=== PATIENT | male | born 1935 | race Caucasian/White ===

== ENCOUNTER → 2019-11-15 13:45 | Outpatient (BNVA) | payer MEDICARE, MEDICAID, SELFPAY | PROVIDERS: PCP Internal Medicine; Visit Provider Urology | DX: Z76.89 Persons encountering health services in other specified circumstances (principal) | CPT/HCPCS: 99212 ==

== ENCOUNTER → 2019-12-13 11:24 | Outpatient (BNVA) | payer MEDICARE, MEDICAID, SELFPAY | PROVIDERS: PCP Nurse Practitioner Family; Referring Provider Nurse Practitioner Family; Visit Provider Urology | DX: Z76.89 Persons encountering health services in other specified circumstances (principal) | CPT/HCPCS: 99212 ==

== ENCOUNTER 2019-12-18 09:23 | Emergency (ER) | payer MEDICARE, MEDICAID, SELFPAY ==
--- NOTE | 2019-12-18 09:29 | ED_ITS ---
HPI - Extremity Problem General Chief complaint: Chest Pain Stated complaint: WOKE UP WITH CP 3 HOURS AGO Time Seen by Provider: 12/18/19 09:28 Source: patient and EMS Mode of arrival: EMS Limitations: altered mental status (dementia) History of Present Illness HPI Narrative: EMS notes chest pain upon waking but Renae states atraumatic L shoulder pain no other associated symptoms MD Complaint: extremity pain Onset (ago): hour(s) (3) Pain Consistency: now resolved Location: left and upper extremity Quality: aching Radiation: none Relieving factors: nothing Exacerbating factors: range of motion Associated symptoms: denies other symptoms Related Data Home Medications Medication Instructions Recorded Confirmed apixaban 5 mg tablet 5 mg PO BID 11/10/19 12/13/19 atorvastatin 80 mg tablet 80 mg PO DAILY 11/10/19 12/13/19 blood sugar diagnostic #10 ea 11/10/19 12/13/19 blood-glucose meter #1 ea 11/10/19 12/13/19 carvedilol 6.25 mg tablet 6.25 mg PO BID 11/10/19 12/13/19 cefuroxime axetil 500 mg tablet 500 mg PO Q12H 11/10/19 12/13/19 cephalexin 500 mg capsule 500 mg PO Q6H 11/10/19 12/13/19 enoxaparin 80 mg/0.8 mL 70 mg SUBCUT Q12H 11/10/19 12/13/19 subcutaneous syringe glimepiride 1 mg tablet 1 mg PO DAILY 11/10/19 12/13/19 insulin glargine 100 unit/mL (3 30 unit SUBCUT BEDTIME 11/10/19 12/13/19 mL) subcutaneous pen lactulose 10 gram/15 mL oral 3 PO PRN 11/10/19 12/13/19 solution lancets #100 ea 11/10/19 12/13/19 levofloxacin 500 mg tablet 500 mg PO DAILY 11/10/19 12/13/19 levofloxacin 750 mg tablet 750 mg PO DAILY 11/10/19 12/13/19 lorazepam 0.5 mg tablet 0.5 mg PO Q6H PRN 11/10/19 12/13/19 memantine 5 mg tablet 5 mg PO BID 11/10/19 12/13/19 metformin 500 mg tablet 500 mg PO DAILY 11/10/19 12/13/19 metformin 850 mg tablet 850 mg PO DAILY 11/10/19 12/13/19 morphine concentrate 100 mg/5 mL 5 mg PO Q3H PRN 11/10/19 12/13/19 (20 mg/mL) oral solution omeprazole 20 mg capsule,delayed 20 mg PO QAM 11/10/19 12/13/19 release paroxetine HCl 20 mg tablet 20 mg PO QAM 11/10/19 12/13/19 polyethylene glycol 3350 17 17 g PO Q12H 11/10/19 12/13/19 gram/dose oral powder quetiapine 50 mg tablet 50 mg PO BEDTIME 11/10/19 12/13/19 sulfamethoxazole 800 1 tab PO BID 11/10/19 12/13/19 mg-trimethoprim 160 mg tablet tamsulosin 0.4 mg capsule 0.4 mg PO DAILY 11/10/19 12/13/19 temazepam 30 mg capsule 30 mg PO BEDTIME PRN 11/10/19 12/13/19 fluconazole 50 mg tablet 50 mg PO DAILY 11/15/19 12/13/19 Previous Rx's Medication Instructions Recorded insulin aspart U-100 100 unit/mL 2 unit SUBCUT TID 30 Days #1.8 ml 12/13/19 (3 mL) subcutaneous pen Allergies Allergy/AdvReac Type Severity Reaction Status Date / Time ibuprofen [IBUPROFEN] Allergy Unknown HIVES Verified 11/17/19 09:25 Review of Systems Review of Systems: ROS unable to be obtained due to dementia [facility] Past Medical History Medical History (Updated 12/18/19 @ 12:10 by Halie Bolton DO) Bladder cancer CAD (coronary artery disease) Dementia Diabetes Dysphagia Neurogenic bladder NSTEMI (non-ST elevated myocardial infarction) Pulmonary embolism Surgical History (Updated 11/17/19 @ 09:27 by YUVAL Coyle, DEL) Suprapubic catheter Family History Family History (Updated 11/17/19 @ 09:29 by YUVAL Coyle, DEL) Father Unknown family medical history Mother Unknown family medical history Social History Social History (Updated 12/18/19 @ 10:16 by Halie Bolton DO) Alcohol intake: never Smoking Status: Former smoker Smoked in Last 30 Days: No Use of substances other than those prescribed or required for medical reasons: No Advance Directives: No Advance Directives Information Provided: No Physical Exam Vital Signs: Vital Signs: Last Vital Signs Temp 97.9 F 12/18/19 10:27 Pulse 80 12/18/19 10:27 Resp 16 12/18/19 10:27 BP 114/65 12/18/19 10:27 Pulse Ox 97 12/18/19 10:27 Body Mass Index 21.2 Appearance: Alert. Oriented X2. No acute distress. Eyes: Pupils equal, round and reactive to light. ENT: Pharynx normal. Neck: Normal inspection. Neck supple. CVS: Normal heart rate and rhythm. Pulses normal. Respiratory: No respiratory distress. Breath sounds normal. Abdomen: Soft and nontender. Skin: Skin warm and dry. Normal skin color. Normal skin turgor. Extremities: No lower extremity edema. No calf ttp L shoulder ttp, distal NV intact pain with ROM Neuro: Oriented X 2. No motor deficit. No sensory deficit. Course Course Course Narrative: workup negative, chronically elevated WBC count at this time, stable for DC MDM - Extremity (Nontraumatic) MDM Narrative Medical decision making narrative: 83 yo male with hx of DM, dementia, PE here with self reported L shoulder pain worse with palpation and ROM - EMS told CP upon waking 3 hours ago at this time will need labs, EKG, troponin x 2, doubt PE on apixaban - shoulder xray ordered as well. dispo per results and findings. Lab Data Result diagrams: 12/18/19 10:56 12/18/19 10:56 Labs: Lab Results 12/18/19 12/18/19 12/18/19 Range/Units 10:56 10:56 10:56 WBC 14.2 H (4.8-10.8) X10*3/uL RBC 4.49 L (4.60-5.80) X10*6/uL Hgb 14.1 (14.0-18.0) g/dl Hct 41.1 L (42-52) % MCV 91.5 (80-98) fL MCH 31.4 (27.0-33.0) pg MCHC 34.3 (31.0-36.0) g/dl RDW 12.7 (11.0-16.0) % Plt Count 307 (160-400) X10*3/uL MPV 8.5 L (9.4-12.4) fL Immature Gran % (Auto) 0.4 (0.0-0.4) % Neut % (Auto) 74.3 H (45-73) % Lymph % (Auto) 17.2 L (20-40) % Luna % (Auto) 6.5 (2-11) % Eos % (Auto) 1.1 (0-4) % Baso % (Auto) 0.5 (0-2) % Lymph # (Auto) 2.4 (1.2-4.9) X10*3/uL Luna # (Auto) 0.9 (0.1-1.2) X10*3/uL Eos # (Auto) 0.2 (0.0-0.4) X10*3/uL Baso # (Auto) 0.1 (0.0-0.2) X10*3/uL Abs Immat Gran (auto) 0.06 H (0.00-0.03) X10*3/uL Absolute Neuts (auto) 10.5 H (2.0-8.3) X10*3/uL Absolute Nucleated RBC 0.000 (0.0-0.012) X10*3/uL Nucleated RBC % (auto) 0.0 (0.0-0.2) /100WBC Hold Blue Top SEE NOTE Sodium 134 L (135-145) mmol/L Potassium 4.3 (3.3-5.1) mmol/l Chloride 98 (96-108) mmol/L Carbon Dioxide 28 (22-29) mmol/L Anion Gap 12 (12-20) BUN 9 (9-16) mg/dL Creatinine 0.84 (0.5-1.4) mg/dL Estim Creat Clear Calc 67.3 Estimated GFR > 60 Random Glucose 124 H (60-115) mg/dL Calcium 8.8 (8.4-10.2) mg/dL Magnesium (1.6-2.6) mg/dL Total Bilirubin 0.5 (0.0-1.0) mg/dL Direct Bilirubin 0.2 (0.0-0.5) mg/dL AST 11 (5-37) U/L ALT 8 (0-40) U/L Alkaline Phosphatase 154 H (39-117) U/L Troponin I High Sens (<3.5-35.0) ng/L Total Protein 7.6 (6.5-8.0) g/dL Albumin 3.9 (3.5-5.0) g/dL Lipase 28 (8-78) U/L 12/18/19 12/18/19 Range/Units 10:56 10:56 WBC (4.8-10.8) X10*3/uL RBC (4.60-5.80) X10*6/uL Hgb (14.0-18.0) g/dl Hct (42-52) % MCV (80-98) fL MCH (27.0-33.0) pg MCHC (31.0-36.0) g/dl RDW (11.0-16.0) % Plt Count (160-400) X10*3/uL MPV (9.4-12.4) fL Immature Gran % (Auto) (0.0-0.4) % Neut % (Auto) (45-73) % Lymph % (Auto) (20-40) % Luna % (Auto) (2-11) % Eos % (Auto) (0-4) % Baso % (Auto) (0-2) % Lymph # (Auto) (1.2-4.9) X10*3/uL Luna # (Auto) (0.1-1.2) X10*3/uL Eos # (Auto) (0.0-0.4) X10*3/uL Baso # (Auto) (0.0-0.2) X10*3/uL Abs Immat Gran (auto) (0.00-0.03) X10*3/uL Absolute Neuts (auto) (2.0-8.3) X10*3/uL Absolute Nucleated RBC (0.0-0.012) X10*3/uL Nucleated RBC % (auto) (0.0-0.2) /100WBC Hold Blue Top Sodium (135-145) mmol/L Potassium (3.3-5.1) mmol/l Chloride (96-108) mmol/L Carbon Dioxide (22-29) mmol/L Anion Gap (12-20) BUN (9-16) mg/dL Creatinine (0.5-1.4) mg/dL Estim Creat Clear Calc Estimated GFR Random Glucose (60-115) mg/dL Calcium (8.4-10.2) mg/dL Magnesium 2.0 (1.6-2.6) mg/dL Total Bilirubin (0.0-1.0) mg/dL Direct Bilirubin (0.0-0.5) mg/dL AST (5-37) U/L ALT (0-40) U/L Alkaline Phosphatase (39-117) U/L Troponin I High Sens < 3.5 (<3.5-35.0) ng/L Total Protein (6.5-8.0) g/dL Albumin (3.5-5.0) g/dL Lipase (8-78) U/L ECG Data Attestation EKG: I personally reviewed and interpreted this ECG as follows: ECG interpretation date: 12/18/19 ECG interpretation time: 10:17 Interpretation: Rate: 81 Rhythm: NSR [place]: left Normal P waves. Normal EM. Normal QRS complex. ST T wave : nonspecific qTC: normal prior studies: no acute ischemia, artifact present The study has been interpreted contemporaneously by me. . Discharge Plan Discharge Clinical Impression: Acute shoulder pain Qualifiers: Laterality: left Qualified Code(s): M25.512 - Pain in left shoulder Patient Disposition: Home, Self-Care Instructions: Arthralgia (ED) Additional Instructions: return to ED for any worsening symptoms or concerns Prescriptions: No Action insulin aspart U-100 [Novolog Flexpen U-100 Insulin] 100 unit/mL (3 mL) insulin pen 2 unit subcut TID 30 Days Qty: 1.8 RF: 0 lactulose 10 gram/15 mL solution 3 PO PRNRF: 0 (DME) OneTouch Ultra Blue Test Strip Strip See Rx Instructions strip .ROUTE .MEDSUPPLY Qty: 10 RF: 0 levofloxacin 500 mg tablet 500 mg PO DAILY RF: 0 cefuroxime axetil 500 mg tablet 500 mg PO Q12H RF: 0 metformin 850 mg tablet 850 mg PO DAILY RF: 0 Eliquis 5 mg tablet 5 mg PO BID RF: 0 quetiapine 50 mg tablet 50 mg PO BEDTIME RF: 0 paroxetine HCl 20 mg tablet 20 mg PO QAM RF: 0 (DME) lancets Misc See Rx Instructions ea .ROUTE .MEDSUPPLY Qty: 100 RF: 0 carvedilol 6.25 mg tablet 6.25 mg PO BID RF: 0 sulfamethoxazole-trimethoprim 800-160 mg tablet 1 tab PO BID RF: 0 memantine 5 mg tablet 5 mg PO BID RF: 0 glimepiride 1 mg tablet 1 mg PO DAILY RF: 0 metformin 500 mg tablet 500 mg PO DAILY RF: 0 enoxaparin 80 mg/0.8 mL syringe 70 mg subcut Q12H RF: 0 polyethylene glycol 3350 17 gram/dose powder 17 g PO Q12H RF: 0 (DME) blood-glucose meter Misc See Rx Instructions ea .ROUTE BID Qty: 1 RF: 0 Lantus Solostar U-100 Insulin 100 unit/mL (3 mL) insulin pen 30 unit subcut BEDTIME RF: 0 temazepam 30 mg capsule 30 mg PO BEDTIME PRNRF: 0 tamsulosin 0.4 mg capsule 0.4 mg PO DAILY RF: 0 lorazepam 0.5 mg tablet 0.5 mg PO Q6H PRN (Reason: dyspnea) RF: 0 morphine concentrate 100 mg/5 mL (20 mg/mL) solution 5 mg PO Q3H PRN (Reason: pain) RF: 0 atorvastatin 80 mg tablet 80 mg PO DAILY RF: 0 levofloxacin 750 mg tablet 750 mg PO DAILY RF: 0 omeprazole 20 mg capsule,delayed release(DR/EC) 20 mg PO QAM RF: 0 cephalexin 500 mg capsule 500 mg PO Q6H RF: 0 fluconazole 50 mg tablet 50 mg PO DAILY RF: 0 Referrals: Physician,Unknown [Primary Care Provider] - 2 days (if not better)
--- NOTE | 2019-12-18 09:29 | XR_ITS ---
EXAMINATION: LEFT SHOULDER X-RAY CLINICAL INFORMATION: Pain COMPARISON: None TECHNIQUE: 3 views of the left shoulder FINDINGS: Bone alignment is normal. No fracture or dislocation is seen. The glenohumeral joint is normal. There is arthritis at the acromioclavicular joint. Soft tissues are unremarkable. XR/XR shoulder LT min 2V IMPRESSION: Arthritis at the acromioclavicular joint. EXAMINATION: Chest x-ray CLINICAL INFORMATION: Pain COMPARISON: Previous chest x-ray April 2016 TECHNIQUE: AP portable chest FINDINGS: The cardiac and mediastinal contours are stable. The lungs are clear. There is no pleural effusion or pneumothorax. There are degenerative changes of the spine. There is an old right proximal humerus fracture. IMPRESSION: No evidence for acute disease in the chest.
--- NOTE | 2019-12-18 09:29 | ECG_ITS ---
Test Reason : WEAKNESS Blood Pressure : / mmHG Vent. Rate : 081 BPM Atrial Rate : 081 BPM P-R Int : 180 ms QRS Dur : 072 ms QT Int : 372 ms P-R-T Axes : 056 002 053 degrees QTc Int : 432 ms Poor data quality, interpretation may be adversely affected Normal sinus rhythm Low voltage QRS Nonspecific T wave abnormality Lateral leads Abnormal ECG When compared with ECG of 28-OCT-2019 14:34, T wave amplitude has decreased in Lateral leads Referred By: Halie Bolton Electronically Signed By:WALTER PALMER MD
--- NOTE | 2019-12-18 09:30 | XR_ITS ---
EXAMINATION: LEFT SHOULDER X-RAY CLINICAL INFORMATION: Pain COMPARISON: None TECHNIQUE: 3 views of the left shoulder FINDINGS: Bone alignment is normal. No fracture or dislocation is seen. The glenohumeral joint is normal. There is arthritis at the acromioclavicular joint. Soft tissues are unremarkable. XR/XR chest 1V IMPRESSION: Arthritis at the acromioclavicular joint. EXAMINATION: Chest x-ray CLINICAL INFORMATION: Pain COMPARISON: Previous chest x-ray April 2016 TECHNIQUE: AP portable chest FINDINGS: The cardiac and mediastinal contours are stable. The lungs are clear. There is no pleural effusion or pneumothorax. There are degenerative changes of the spine. There is an old right proximal humerus fracture. IMPRESSION: No evidence for acute disease in the chest.
--- NOTE | 2019-12-18 10:03 | PC.NURSE ---
ekg completed, seen by provider, off to xray via stretcher
[2019-12-18 10:27] VITALS: BP 114/65; BP 117/64; PULSE 68; PULSE 80; RESP 16; TEMP 36.6; O2SAT 97; O2SAT 98; BMI 21.2
--- NOTE | 2019-12-18 10:47 | PC.NURSE ---
unable to draw blood labs, pct at bedside to attempt labs.
[2019-12-18 11:03] LABS: MANUAL DIFF FLAG NO
[2019-12-18 11:05] LABS: Basophils Absolute Auto 0.1 X10*3/uL (0.0-0.2); Basophils Percent Auto 0.5 % (0-2); Eosinophils Absolute Auto 0.2 X10*3/uL (0.0-0.4); Eosinophils Percent Auto 1.1 % (0-4); Hematocrit 41.1 % (42-52); Hemoglobin 14.1 g/dl (14.0-18.0); Imm Gran Abs Auto 0.06 X10*3/uL (0.00-0.03); Imm Gran Pct Auto 0.4 % (0.0-0.4); Lymphocytes Absolute Auto 2.4 X10*3/uL (1.2-4.9); Lymphocytes Percent Auto 17.2 % (20-40); Mean Corpuscular HGB Conc 34.3 g/dl (31.0-36.0); Mean Corpuscular Hemoglobin 31.4 pg (27.0-33.0); Mean Corpuscular Volume 91.5 fL (80-98); Mean Platelet Volume 8.5 fL (9.4-12.4); Monocytes Absolute Auto 0.9 X10*3/uL (0.1-1.2); Monocytes Percent Auto 6.5 % (2-11); Neutrophils Absolute Auto 10.5 X10*3/uL (2.0-8.3); Neutrophils Percent Auto 74.3 % (45-73); Platelet Count 307 X10*3/uL (160-400); Red Blood Count 4.49 X10*6/uL (4.60-5.80); Red Cell Distribution Width 12.7 % (11.0-16.0); White Blood Count 14.2 X10*3/uL (4.8-10.8)
[2019-12-18 11:33] LABS: Alanine Aminotransferase 8 U/L (0-40); Albumin Level 3.9 g/dL (3.5-5.0); Alkaline Phosphatase 154 U/L (39-117); Anion Gap 12 (12-20); Aspartate Amino Transferase 11 U/L (5-37); Bilirubin Direct 0.2 mg/dL (0.0-0.5); Bilirubin Total 0.5 mg/dL (0.0-1.0); Blood Urea Nitrogen 9 mg/dL (9-16); Calcium 8.8 mg/dL (8.4-10.2); Carbon Dioxide 28 mmol/L (22-29); Chloride 98 mmol/L (96-108); Creatinine Clr Calc Pharmacy 67.3; Estimated Glomerular Filt Rate > 60; Glucose Random 124 mg/dL (60-115); Lipase 28 U/L (8-78); Potassium 4.3 mmol/l (3.3-5.1); Sodium 134 mmol/L (135-145); Total Protein 7.6 g/dL (6.5-8.0)
[2019-12-18 11:36] LABS: Troponin-I High Sensitivity < 3.5 ng/L (<3.5-35.0)
--- NOTE | 2019-12-18 12:01 | PC.NURSE ---
pt in waiting room updated on plan of care.
== END 2019-12-18 13:42 | disposition home or self-care (01) ==
PROVIDERS: Emergency Provider Emergency Medicine
DX: R07.9 Chest pain, unspecified (principal); M25.512 Pain in left shoulder; Z79.899 Other long term (current) drug therapy; Z87.891 Personal history of nicotine dependence
CPT/HCPCS: 36415; 71045; 73030; 80048; 80076; 83690; 83735; 84484; 85025; 93005; 99283; 99284

== ENCOUNTER 2019-12-25 13:57 | Inpatient (IN) | payer MEDICARE, MEDICAID, SELFPAY ==
[2019-12-25 15:55] VITALS: BP 143/75; PULSE 102; RESP 14; TEMP 36.6; O2SAT 97
--- NOTE | 2019-12-25 16:45 | US_ITS ---
EXAMINATION: US SCROTUM CLINICAL INFORMATION: Testicular swelling. COMPARISON: None TECHNIQUE: A sonogram of the scrotum was performed assessing chandler-scale appearance and color Doppler flow. Spectral Doppler analysis of the arterial and venous flow were performed in the testes bilaterally. FINDINGS: RIGHT: Right testicle measures 3.5 x 2.1 x 2 cm, volume 8.1 mL. No focal testicular parenchymal lesions are visualized. Spectral Doppler analysis of the arterial and venous flow is normal in the right testis. Right epididymal head is normal in size. There is a 0.7 cm echogenic focus in the tail of the epididymis, that with surrounding hypoechogenicity. No right hydrocele or varicocele is seen. Right epididymal Doppler flow is increased. LEFT: Left testicle measures 3.5 x 2.1 x 2.8 cm, volume 10.9 mL. No focal testicular parenchymal lesions are visualized. Spectral Doppler analysis of the arterial and venous flow is increased in the left testis. Left epididymal head is increased in size and is heterogeneous the left scrotal soft tissues are quite thickened. There is a complex left hydrocele with internal debris measuring approximately 3.6 x 2.8 cm in transverse dimension. Left epididymal Doppler flow is increased. US/US scrotum IMPRESSION: Enlarged heterogeneous and hyperemic left epididymis and hyperemic left testicle concerning for epididymoorchitis. There is an associated complex left hydrocele that may represent a pyocele with internal debris. There is also mild hyperemia of the right epididymis, that may represent adjacent inflammation.. Nonspecific 0.7 cm echogenic focus in the tail of the epididymis with surrounding hypoechogenicity. Findings may represent an extratesticular dermoid or granuloma. Intact arterial and venous flow to both testes without evidence for torsion.
--- NOTE | 2019-12-25 16:52 | ED.MALEGU ---
HPI - Male Genitourinary General Chief complaint: Urogenital-Male Stated complaint: testicle pain Time Seen by Provider: 12/25/19 16:41 Source: patient and family Mode of arrival: ambulatory Limitations: other ( dementia) History of Present Illness HPI Narrative: patient with history of scrotal abscess status post I and D on 11/14 comes here for increased swelling of scrotum mostly on the left side for last 3 days some serous discharge. Patient blood sugar been stable no fever no chills no abdominal pain no nausea no vomiting MD Complaint: testicle pain and testicle swelling Radiation: right testicle and left testicle Related Data Home Medications Medication Instructions Recorded Confirmed apixaban 5 mg tablet 5 mg PO BID 11/10/19 12/26/19 atorvastatin 80 mg tablet 80 mg PO DAILY 11/10/19 12/26/19 blood sugar diagnostic #10 ea 11/10/19 12/26/19 blood-glucose meter #1 ea 11/10/19 12/13/19 carvedilol 6.25 mg tablet 6.25 mg PO BID 11/10/19 12/26/19 cefuroxime axetil 500 mg tablet 500 mg PO Q12H 11/10/19 12/26/19 cephalexin 500 mg capsule 500 mg PO Q6H 11/10/19 12/26/19 enoxaparin 80 mg/0.8 mL 70 mg SUBCUT Q12H 11/10/19 12/26/19 subcutaneous syringe glimepiride 1 mg tablet 1 mg PO DAILY 11/10/19 12/26/19 insulin glargine 100 unit/mL (3 30 unit SUBCUT BEDTIME 11/10/19 12/26/19 mL) subcutaneous pen lactulose 10 gram/15 mL oral 3 PO PRN 11/10/19 12/13/19 solution lancets #100 ea 11/10/19 12/13/19 levofloxacin 500 mg tablet 500 mg PO DAILY 11/10/19 12/26/19 levofloxacin 750 mg tablet 750 mg PO DAILY 11/10/19 12/26/19 lorazepam 0.5 mg tablet 0.5 mg PO Q6H PRN 11/10/19 12/26/19 memantine 5 mg tablet 5 mg PO BID 11/10/19 12/26/19 metformin 500 mg tablet 500 mg PO DAILY 11/10/19 12/26/19 metformin 850 mg tablet 850 mg PO DAILY 11/10/19 12/26/19 morphine concentrate 100 mg/5 mL 5 mg PO Q3H PRN 11/10/19 12/26/19 (20 mg/mL) oral solution omeprazole 20 mg capsule,delayed 20 mg PO QAM 11/10/19 12/26/19 release paroxetine HCl 20 mg tablet 20 mg PO QAM 11/10/19 12/13/19 polyethylene glycol 3350 17 17 g PO Q12H 11/10/19 12/26/19 gram/dose oral powder quetiapine 50 mg tablet 50 mg PO BEDTIME 11/10/19 12/26/19 sulfamethoxazole 800 1 tab PO BID 11/10/19 12/26/19 mg-trimethoprim 160 mg tablet tamsulosin 0.4 mg capsule 0.4 mg PO DAILY 11/10/19 12/26/19 temazepam 30 mg capsule 30 mg PO BEDTIME PRN 11/10/19 12/26/19 fluconazole 50 mg tablet 50 mg PO DAILY 11/15/19 12/26/19 Previous Rx's Medication Instructions Recorded insulin aspart U-100 100 unit/mL 2 unit SUBCUT TID 30 Days #1.8 ml 12/13/19 (3 mL) subcutaneous pen sulfamethoxazole 800 1 tab PO BID 14 Days #28 tab 12/23/19 mg-trimethoprim 160 mg tablet Allergies Allergy/AdvReac Type Severity Reaction Status Date / Time ibuprofen [IBUPROFEN] Allergy Unknown HIVES Verified 12/25/19 15:59 Review of Systems Review of Systems: REVIEW OF SYSTEMS: per patient's , Pertinent positives and negatives are stated above in the history. GEN: no fevers, chills, fatigue HEENT: no nasal congestion, sore throat, ear pain NEURO: no headache, dizziness, focal weakness PULM: no cough, shortness of breath CV: no chest pain, palpitations, LE edema ABD: no abdominal pain, nausea, vomiting, diarrhea : no dysuria, urgency, frequency SKIN: no rash ROS otherwise negative x 10 [facility] Past Medical History Medical History (Updated 12/26/19 @ 00:20 by Benito Patel MD) Bladder cancer CAD (coronary artery disease) Dementia Diabetes Dysphagia Neurogenic bladder NSTEMI (non-ST elevated myocardial infarction) Pulmonary embolism Surgical History Suprapubic catheter Family History Family History Father Unknown family medical history Mother Unknown family medical history Social History Social History Alcohol intake: never Smoking Status: Former smoker Advance Directives: No Advance Directives Information Provided: No Physical Exam Vital Signs: Vital Signs: Last Vital Signs Temp 97.9 F 12/25/19 18:00 Pulse 94 12/25/19 18:00 Resp 16 12/25/19 18:00 BP 134/71 12/25/19 18:00 Pulse Ox 95 12/25/19 18:00 Body Mass Index 0.0 Const: General: cooperative, healthy appearing, comfortable and no acute distress HENMT: Mouth: Normal oral and palatal mucosa present Eyes: Conjunctivae: conjunctivae normal Sclerae: sclerae normal Resp: Effort & Inspection: normal respiratory effort Auscultation: clear to auscultation bilaterally Cardio: Rate: regular rate Rhythm: regular rhythm Heart sounds: S1 normal heart sound present and S2 normal heart sound present GI: Inspection: Yes normal to inspection Palpation (GI): Soft to palpation, Firmness to palpation present (GI) and nontender Auscultation: normal bowel sounds : Male General Exam: Yes normal external exam Penis: normal penis Meatus: meatus normal Scrotum: testes descended bilaterally and scrotal swelling on the left and diffuse Testes: Enlarged testicle(s) present on the left, mass, testicular mass on the left and testicular swelling on the left Course Reevaluation(s) Reevaluation #1: patient with history of epididymo-orchitis came with increased pain and swelling left testicle for last 3 days ultrasound showed recurrence of left epididymo-orchitis with complex left hydrocele 3.6 x 2.8 cm. Patient with leukocytosis no fever normal lactic acid level. Will give him Zosyn. Case discussed with Dr. Whitfield urologist admit to medical service will see the patient tomorrow MDM - Male Genitourinary Differential Diagnosis Differential diagnosis: Likely epididymitis Medical Records Attestation: I reviewed the patient's medical records. Lab Data Attestation: I reviewed the patient's lab results. Result diagrams: 12/25/19 18:43 12/25/19 18:43 Labs: Lab Results 12/25/19 12/25/19 12/25/19 Range/Units 18:43 18:43 20:53 WBC 17.0 H (4.8-10.8) X10*3/uL RBC 4.01 L (4.60-5.80) X10*6/uL Hgb 12.6 L (14.0-18.0) g/dl Hct 37.1 L (42-52) % MCV 92.5 (80-98) fL MCH 31.4 (27.0-33.0) pg MCHC 34.0 (31.0-36.0) g/dl RDW 12.5 (11.0-16.0) % Plt Count 340 (160-400) X10*3/uL MPV 8.4 L (9.4-12.4) fL Immature Gran % (Auto) 0.5 H (0.0-0.4) % Neut % (Auto) 76.6 H (45-73) % Lymph % (Auto) 14.2 L (20-40) % [place] % (Auto) 6.5 (2-11) % Eos % (Auto) 1.8 (0-4) % Baso % (Auto) 0.4 (0-2) % Lymph # (Auto) 2.4 (1.2-4.9) X10*3/uL [place] # (Auto) 1.1 (0.1-1.2) X10*3/uL Eos # (Auto) 0.3 (0.0-0.4) X10*3/uL Baso # (Auto) 0.1 (0.0-0.2) X10*3/uL Abs Immat Gran (auto) 0.09 H (0.00-0.03) X10*3/uL Absolute Neuts (auto) 13.0 H (2.0-8.3) X10*3/uL Absolute Nucleated RBC 0.000 (0.0-0.012) X10*3/uL Nucleated RBC % (auto) 0.0 (0.0-0.2) /100WBC Sodium 130 L (135-145) mmol/L Potassium 4.3 (3.3-5.1) mmol/l Chloride 94 L (96-108) mmol/L Carbon Dioxide 27 (22-29) mmol/L Anion Gap 13 (12-20) BUN 11 (9-16) mg/dL Creatinine 1.00 (0.5-1.4) mg/dL Estim Creat Clear Calc TNP Estimated GFR > 60 Random Glucose 264 H D (60-115) mg/dL Lactic Acid 1.4 (0.5-2.0) mmol/L Calcium 8.6 (8.4-10.2) mg/dL COVID-19 (REGAN) (Negative) COVID-19 Clin Com 12/25/19 Range/Units 23:49 WBC (4.8-10.8) X10*3/uL RBC (4.60-5.80) X10*6/uL Hgb (14.0-18.0) g/dl Hct (42-52) % MCV (80-98) fL MCH (27.0-33.0) pg MCHC (31.0-36.0) g/dl RDW (11.0-16.0) % Plt Count (160-400) X10*3/uL MPV (9.4-12.4) fL Immature Gran % (Auto) (0.0-0.4) % Neut % (Auto) (45-73) % Lymph % (Auto) (20-40) % [place] % (Auto) (2-11) % Eos % (Auto) (0-4) % Baso % (Auto) (0-2) % Lymph # (Auto) (1.2-4.9) X10*3/uL [place] # (Auto) (0.1-1.2) X10*3/uL Eos # (Auto) (0.0-0.4) X10*3/uL Baso # (Auto) (0.0-0.2) X10*3/uL Abs Immat Gran (auto) (0.00-0.03) X10*3/uL Absolute Neuts (auto) (2.0-8.3) X10*3/uL Absolute Nucleated RBC (0.0-0.012) X10*3/uL Nucleated RBC % (auto) (0.0-0.2) /100WBC Sodium (135-145) mmol/L Potassium (3.3-5.1) mmol/l Chloride (96-108) mmol/L Carbon Dioxide (22-29) mmol/L Anion Gap (12-20) BUN (9-16) mg/dL Creatinine (0.5-1.4) mg/dL Estim Creat Clear Calc Estimated GFR Random Glucose (60-115) mg/dL Lactic Acid (0.5-2.0) mmol/L Calcium (8.4-10.2) mg/dL COVID-19 (REGAN) Negative (Negative) COVID-19 Clin Com See Note Imaging Data US - abdomen: Attestation: I personally reviewed and interpreted this imaging study as follows: Radiologist's impression: US/US scrotum IMPRESSION: Enlarged heterogeneous and hyperemic left epididymis and hyperemic left testicle concerning for epididymoorchitis. There is an associated complex left hydrocele that may represent a pyocele with internal debris. There is also mild hyperemia of the right epididymis, that may represent adjacent inflammation.. Nonspecific 0.7 cm echogenic focus in the tail of the epididymis with surrounding hypoechogenicity. Findings may represent an extratesticular dermoid or granuloma. Intact arterial and venous flow to both testes without evidence for torsion. Discharge Plan Discharge Clinical Impression: Acute epididymo-orchitis Patient Disposition: Admitted As Inpatient
--- NOTE | 2019-12-25 17:20 | PC.NURSE ---
Pt diffucult sstick- x attempt from this rn, u/s currently at bedside then second rn to attempt
[2019-12-25 18:00] VITALS: BP 134/71; PULSE 94; RESP 16; TEMP 36.6; O2SAT 95
--- NOTE | 2019-12-25 18:43 | PC.NURSE ---
Per dr. gleason ok to not give fluids/ iv access. phlebotomy called, multiple attempts by rns for labs/iv
[2019-12-25 18:50] LABS: MANUAL DIFF FLAG NO
[2019-12-25 18:53] LABS: Basophils Absolute Auto 0.1 X10*3/uL (0.0-0.2); Basophils Percent Auto 0.4 % (0-2); Eosinophils Absolute Auto 0.3 X10*3/uL (0.0-0.4); Eosinophils Percent Auto 1.8 % (0-4); Hematocrit 37.1 % (42-52); Hemoglobin 12.6 g/dl (14.0-18.0); Imm Gran Abs Auto 0.09 X10*3/uL (0.00-0.03); Imm Gran Pct Auto 0.5 % (0.0-0.4); Lymphocytes Absolute Auto 2.4 X10*3/uL (1.2-4.9); Lymphocytes Percent Auto 14.2 % (20-40); Mean Corpuscular Hemoglobin 31.4 pg (27.0-33.0); Mean Corpuscular Volume 92.5 fL (80-98); Mean Platelet Volume 8.4 fL (9.4-12.4); Monocytes Absolute Auto 1.1 X10*3/uL (0.1-1.2); Monocytes Percent Auto 6.5 % (2-11); Neutrophils Percent Auto 76.6 % (45-73); Platelet Count 340 X10*3/uL (160-400); Red Blood Count 4.01 X10*6/uL (4.60-5.80); Red Cell Distribution Width 12.5 % (11.0-16.0)
[2019-12-25 19:26] LABS: Anion Gap 13 (12-20); Blood Urea Nitrogen 11 mg/dL (9-16); Calcium 8.6 mg/dL (8.4-10.2); Carbon Dioxide 27 mmol/L (22-29); Chloride 94 mmol/L (96-108); Estimated Glomerular Filt Rate > 60; Glucose Random 264 mg/dL (60-115); Potassium 4.3 mmol/l (3.3-5.1); Sodium 130 mmol/L (135-145)
--- NOTE | 2019-12-25 20:14 | PC.NURSE ---
PHARMACY CONTACTED DUE TO ED PYXIS MALFUNCTION. WILL ADMINISTER ZOSYN ORDERED UPON ARRIVAL TO ED.
--- NOTE | 2019-12-25 20:42 | PC.NURSE ---
ATTEMPTING TO OBTAIN IV ACCESS AT THIS TIME. ADDITIONAL LABS NEEDED. PT IS A DIFFICULT STICK.
[2019-12-25] MEDS: Piperacillin Sodium/Tazobactam 3.375 GM in 0.9 % Sodium Chloride 50 ML IV (20:55)
[2019-12-25 21:00] VITALS: BP 123/73; PULSE 89; RESP 18; TEMP 36.6; O2SAT 97
[2019-12-25 21:23] LABS: Lactic Acid 1.4 mmol/L (0.5-2.0)
--- NOTE | 2019-12-25 22:34 | PC.NURSE ---
Patient's (Blessing) given update as requested at [phone]. All questions/concerns answered.
--- NOTE | 2019-12-25 23:00 | P.HPHOSP_ITS ---
History of Present Illness Date of Service: 12/25/19 Chief Complaint: left testicular pain 84 y/o male with an extensive PMHX who presented from home due to left testicular pain. Patient has underlying hx of dementia. Hx obtained from ED attending/Patient's . Per history provided, patient has been having this symptoms for the past day with no associated fever, nausea, vomiting, diarrhea or difficulty urinating. On presentation to the ED vitals are stable, no evidence of fever. WBC of 17, NA of 130, glucose of 264. US scrotum done which shows evidence of left epididymoorchitis, left complex hydrocele and right epididymitis. No evidence of torsion. Urology consulted per ED who recommends patient to be admitted to medicine and will follow up in the am. Patient was given one dose of zosyn per ED attending and decision for admission was given. Patient seen and examined at the bedside, ROS unable to be obtained. Physical exam positive for left testicular swelling and tenderness on exam, no tenderness on the right testicle. AAOX0. Rest of the exam unremarkable. PMHX: Pulmonary embolism diagnosed in May 2019 Alzheimer's dementia CAD status post Hypertension Diabetes COPD BPH Recurrent UTI Bladder cancer Previous chronic suprapubic catheter PSx: Suprapubic bladder catheter Social history Lives with his Previous smoker No history of alcohol or illicit substance abuse Review of Systems Review of Systems: Yes Other (unable to be obtained ) [facility] Medical History (Updated 12/26/19 @ 00:20 by Benito Patel MD) Bladder cancer CAD (coronary artery disease) Dementia Diabetes Dysphagia Neurogenic bladder NSTEMI (non-ST elevated myocardial infarction) Pulmonary embolism Family History Father Unknown family medical history Mother Unknown family medical history Surgical History Suprapubic catheter Social History Alcohol intake: never Smoking Status: Former smoker Advance Directives: No Advance Directives Information Provided: No Meds Allergies Allergy/AdvReac Type Severity Reaction Status Date / Time ibuprofen [IBUPROFEN] Allergy Unknown HIVES Verified 12/25/19 15:59 Home Medications Medication Instructions Recorded Confirmed Type apixaban 5 mg tablet 5 mg PO BID 11/10/19 12/26/19 History atorvastatin 80 mg tablet 80 mg PO DAILY 11/10/19 12/26/19 History blood sugar diagnostic #10 ea 11/10/19 12/26/19 History blood-glucose meter #1 ea 11/10/19 12/13/19 History carvedilol 6.25 mg tablet 6.25 mg PO BID 11/10/19 12/26/19 History cefuroxime axetil 500 mg tablet 500 mg PO Q12H 11/10/19 12/26/19 History cephalexin 500 mg capsule 500 mg PO Q6H 11/10/19 12/26/19 History enoxaparin 80 mg/0.8 mL 70 mg SUBCUT Q12H 11/10/19 12/26/19 History subcutaneous syringe glimepiride 1 mg tablet 1 mg PO DAILY 11/10/19 12/26/19 History insulin glargine 100 unit/mL (3 30 unit SUBCUT BEDTIME 11/10/19 12/26/19 History mL) subcutaneous pen lactulose 10 gram/15 mL oral 3 PO PRN 11/10/19 12/13/19 History solution lancets #100 ea 11/10/19 12/13/19 History levofloxacin 500 mg tablet 500 mg PO DAILY 11/10/19 12/26/19 History levofloxacin 750 mg tablet 750 mg PO DAILY 11/10/19 12/26/19 History lorazepam 0.5 mg tablet 0.5 mg PO Q6H PRN 11/10/19 12/26/19 History memantine 5 mg tablet 5 mg PO BID 11/10/19 12/26/19 History metformin 500 mg tablet 500 mg PO DAILY 11/10/19 12/26/19 History metformin 850 mg tablet 850 mg PO DAILY 11/10/19 12/26/19 History morphine concentrate 100 mg/5 mL 5 mg PO Q3H PRN 11/10/19 12/26/19 History (20 mg/mL) oral solution omeprazole 20 mg capsule,delayed 20 mg PO QAM 11/10/19 12/26/19 History release paroxetine HCl 20 mg tablet 20 mg PO QAM 11/10/19 12/13/19 History polyethylene glycol 3350 17 17 g PO Q12H 11/10/19 12/26/19 History gram/dose oral powder quetiapine 50 mg tablet 50 mg PO BEDTIME 11/10/19 12/26/19 History sulfamethoxazole 800 1 tab PO BID 11/10/19 12/26/19 History mg-trimethoprim 160 mg tablet tamsulosin 0.4 mg capsule 0.4 mg PO DAILY 11/10/19 12/26/19 History temazepam 30 mg capsule 30 mg PO BEDTIME PRN 11/10/19 12/26/19 History fluconazole 50 mg tablet 50 mg PO DAILY 11/15/19 12/26/19 History Physical Exam Vital Signs and Narrative: Vital Signs: Last Vital Signs Temp 97.9 F 12/25/19 18:00 Pulse 94 12/25/19 18:00 Resp 16 12/25/19 18:00 BP 134/71 12/25/19 18:00 Pulse Ox 95 12/25/19 18:00 Body Mass Index 0.0 Results Labs CBC and Chem 7: 12/25/19 18:43 12/25/19 18:43 Labs: Laboratory Results - last 24 hr 12/25/19 12/25/19 12/25/19 18:43 18:43 20:53 MCV 92.5 MCH 31.4 MCHC 34.0 RDW 12.5 Plt Count 340 MPV 8.4 L Immature Gran % (Auto) 0.5 H Neut % (Auto) 76.6 H Lymph % (Auto) 14.2 L Centre % (Auto) 6.5 Eos % (Auto) 1.8 Baso % (Auto) 0.4 Lymph # (Auto) 2.4 Centre # (Auto) 1.1 Eos # (Auto) 0.3 Baso # (Auto) 0.1 Abs Immat Gran (auto) 0.09 H Absolute Neuts (auto) 13.0 H Absolute Nucleated RBC 0.000 Nucleated RBC % (auto) 0.0 Anion Gap 13 Estim Creat Clear Calc TNP Estimated GFR > 60 Random Glucose 264 H D Lactic Acid 1.4 Calcium 8.6 Imaging Radiologist's Impressions: Impressions Scrotum Ultrasound 12/25/19 16:45 IMPRESSION: Enlarged heterogeneous and hyperemic left epididymis and hyperemic left testicle concerning for epididymoorchitis. There is an associated complex left hydrocele that may represent a pyocele with internal debris. There is also mild hyperemia of the right epididymis, that may represent adjacent inflammation.. Nonspecific 0.7 cm echogenic focus in the tail of the epididymis with surrounding hypoechogenicity. Findings may represent an extratesticular dermoid or granuloma. Intact arterial and venous flow to both testes without evidence for torsion. Assessment and Plan (1) Acute epididymo-orchitis: Status: Acute s/p one dose of zosyn per ED attending for gram neg/anaerobic coverage Will continue with doxycycline PO 100 mg BID for a total duration of 10 days. No enterococcal coverage needed at present Infectious disease consutl Urology consulted per ED, to be followed up in the am (2) Diabetes: Status: Acute Insulin regimen as ordered (3) CAD (coronary artery disease): Status: Acute continue with eliquis home dose continue with statin home dose continue with carvedilol home dose (4) Dementia: Status: Acute continue with home meds as ordered (5) Hyponatremia: Status: Acute likely secondary to dehydration continue with hydration and follow up repeat BMP
--- NOTE | 2019-12-25 23:24 | PC.NURSE ---
UPON ENTERING PATIENT'S ROOM. PATIENT REMOVED HIS OWN IV ACCESS.
--- NOTE | 2019-12-25 23:53 | PC.NURSE ---
PATIENT LINENS CHANGED, HYGIENE CARE PROVIDED. PT ATTEMPTING TO GET OUT OF BED INTERMITTENTLY. PT CONFUSED (BASELINE MENTATION). NOT COMBATIVE AT THIS TIME. RE-DIRECTABLE, BUT REQUIRES A SITTER AT THIS TIME. DEVAN (MONOGRAM OPERATOR) AWARE. COVID-19 SWAB OBTAINED AND SENT TO LAB FOR ANALYSIS. AWAITING RESULTS. AWAITING BED ASSIGNMENT. WILL CONTINUE TO MONITOR. AWARE OF PATIENT NOT HAVING IV ACCESS AT THIS TIME. WILL ATTEMPT TO OBTAIN NEW IV ACCESS WHEN PATIENT IS CALMER. PATIENT IS OTHERWISE COOPERATIVE WITH STAFF WITH DIRECTION.
[2019-12-26] VITALS (8 sets, daily range): BP systolic 118–147; BP diastolic 62–78; PULSE 84–95; RESP 16–20; TEMP 36.1–36.9; O2SAT 95–99; BMI 20.7
[2019-12-26 00:16] LABS: COVID-19 Test Negative (Negative)
[2019-12-26] MEDS: 0.9 % Sodium Chloride 500 ML 75 ML IVCONT (01:31)
--- NOTE | 2019-12-26 02:56 | PC.NURSE ---
RN TO RN REPORT GIVEN TO MICHELL VALDEZ ON [facility]. PREPARING FOR TRANSFER TO [facility] ROOM [id number].
[2019-12-26 03:37] LABS: Glucose, Whole Blood 212 mg/dL (60-115)
[2019-12-26] MEDS: Omeprazole 20 MG CAPSULE.DR PO (05:50)
[2019-12-26 06:38] LABS: MANUAL DIFF FLAG NO
[2019-12-26 06:57] LABS: Basophils Absolute Auto 0.1 X10*3/uL (0.0-0.2); Basophils Percent Auto 0.4 % (0-2); Eosinophils Absolute Auto 0.4 X10*3/uL (0.0-0.4); Eosinophils Percent Auto 2.3 % (0-4); Hematocrit 36.2 % (42-52); Hemoglobin 12.2 g/dl (14.0-18.0); Imm Gran Abs Auto 0.09 X10*3/uL (0.00-0.03); Imm Gran Pct Auto 0.6 % (0.0-0.4); Lymphocytes Absolute Auto 2.5 X10*3/uL (1.2-4.9); Lymphocytes Percent Auto 16.1 % (20-40); Mean Corpuscular HGB Conc 33.7 g/dl (31.0-36.0); Mean Corpuscular Hemoglobin 31.1 pg (27.0-33.0); Mean Corpuscular Volume 92.3 fL (80-98); Mean Platelet Volume 8.8 fL (9.4-12.4); Monocytes Absolute Auto 1.1 X10*3/uL (0.1-1.2); Monocytes Percent Auto 6.9 % (2-11); Neutrophils Absolute Auto 11.6 X10*3/uL (2.0-8.3); Neutrophils Percent Auto 73.7 % (45-73); Platelet Count 329 X10*3/uL (160-400); Red Blood Count 3.92 X10*6/uL (4.60-5.80); Red Cell Distribution Width 12.2 % (11.0-16.0); White Blood Count 15.7 X10*3/uL (4.8-10.8)
[2019-12-26 07:09] LABS: Anion Gap 13 (12-20); Blood Urea Nitrogen 10 mg/dL (9-16); Calcium 8.8 mg/dL (8.4-10.2); Carbon Dioxide 28 mmol/L (22-29); Chloride 97 mmol/L (96-108); Creatinine Clr Calc Pharmacy 54.5; Estimated Glomerular Filt Rate > 60; Glucose Random 203 mg/dL (60-115); Potassium 4.7 mmol/l (3.3-5.1); Sodium 133 mmol/L (135-145)
[2019-12-26 08:44] LABS: Glucose, Whole Blood 193 mg/dL (60-115)
[2019-12-26] MEDS: Tamsulosin HCL 0.4 MG CAPSULE PO (09:40)
[2019-12-26] MEDS: carvediloL 6.25 MG TABLET PO ×2 (09:40→21:28)
[2019-12-26] MEDS: Memantine HCl 5 MG TABLET PO ×2 (09:40→21:30)
[2019-12-26] MEDS: Apixaban 5 MG TABLET PO ×2 (09:40→21:30)
[2019-12-26] MEDS: Atorvastatin Calcium 80 MG TABLET PO (09:40)
[2019-12-26] MEDS: 0.9 % Sodium Chloride Flush 3 ML SYRINGE IVFLUSH ×3 (09:41→21:28)
[2019-12-26 11:26] LABS: Glucose, Whole Blood 207 mg/dL (60-115)
[2019-12-26] MEDS: Insulin Lispro 100 UNIT/ML 3 ML VIAL SUBCUT ×2 (11:57→16:15)
--- NOTE | 2019-12-26 14:38 | W.PM.IDCN ---
History of Present Illness Data of Consult Service Date: 12/26/19 Requesting physician: Juan Francisco Munoz Primary Care Provider: KOMAL Martinez HPI Reason for consult: epidydimorchitis Patient presents to hospital with discomfort left testicular area for last 2 days He has no fever or chills He has had leukocytosis of 17,000 He has complex left hydrocele He has had a telehealth with Dr Whitfield last month Review of Systems Review of Systems: Yes Unobtainable due to mental condition PMFSH Past Medical History Medical History Bladder cancer CAD (coronary artery disease) Dementia Diabetes Dysphagia Neurogenic bladder NSTEMI (non-ST elevated myocardial infarction) Pulmonary embolism Family History Family History Father Unknown family medical history Mother Unknown family medical history Surgical History Surgical History Suprapubic catheter Social History Social History Household Members: Spouse Housing: Unknown / Unable to assess Alcohol intake: never Smoking Status: Unknown if ever smoked Use of substances other than those prescribed or required for medical reasons: Unknown Currently Displaying Signs/Symptoms of Drug Intoxication Withdrawal: No Advance Directives: No Advance Directives Information Provided: No Do you have thoughts of harming others: None Do you have a plan to hurt others: No Plan Recently lost weight without trying: Unsure Meds Allergies Allergy/AdvReac Type Severity Reaction Status Date / Time ibuprofen [IBUPROFEN] Allergy Unknown HIVES Verified 12/25/19 15:59 Home Medications Medication Instructions Recorded Confirmed Type apixaban 5 mg tablet 5 mg PO BID 11/10/19 12/26/19 History atorvastatin 80 mg tablet 80 mg PO DAILY 11/10/19 12/26/19 History blood sugar diagnostic #10 ea 11/10/19 12/26/19 History blood-glucose meter #1 ea 11/10/19 12/13/19 History carvedilol 6.25 mg tablet 6.25 mg PO BID 11/10/19 12/26/19 History cefuroxime axetil 500 mg tablet 500 mg PO Q12H 11/10/19 12/26/19 History cephalexin 500 mg capsule 500 mg PO Q6H 11/10/19 12/26/19 History enoxaparin 80 mg/0.8 mL 70 mg SUBCUT Q12H 11/10/19 12/26/19 History subcutaneous syringe glimepiride 1 mg tablet 1 mg PO DAILY 11/10/19 12/26/19 History insulin glargine 100 unit/mL (3 30 unit SUBCUT BEDTIME 11/10/19 12/26/19 History mL) subcutaneous pen lactulose 10 gram/15 mL oral 3 PO PRN 11/10/19 12/13/19 History solution lancets #100 ea 11/10/19 12/13/19 History levofloxacin 500 mg tablet 500 mg PO DAILY 11/10/19 12/26/19 History levofloxacin 750 mg tablet 750 mg PO DAILY 11/10/19 12/26/19 History lorazepam 0.5 mg tablet 0.5 mg PO Q6H PRN 11/10/19 12/26/19 History memantine 5 mg tablet 5 mg PO BID 11/10/19 12/26/19 History metformin 500 mg tablet 500 mg PO DAILY 11/10/19 12/26/19 History metformin 850 mg tablet 850 mg PO DAILY 11/10/19 12/26/19 History morphine concentrate 100 mg/5 mL 5 mg PO Q3H PRN 11/10/19 12/26/19 History (20 mg/mL) oral solution omeprazole 20 mg capsule,delayed 20 mg PO QAM 11/10/19 12/26/19 History release paroxetine HCl 20 mg tablet 20 mg PO QAM 11/10/19 12/13/19 History polyethylene glycol 3350 17 17 g PO Q12H 11/10/19 12/26/19 History gram/dose oral powder quetiapine 50 mg tablet 50 mg PO BEDTIME 11/10/19 12/26/19 History sulfamethoxazole 800 1 tab PO BID 11/10/19 12/26/19 History mg-trimethoprim 160 mg tablet tamsulosin 0.4 mg capsule 0.4 mg PO DAILY 11/10/19 12/26/19 History temazepam 30 mg capsule 30 mg PO BEDTIME PRN 11/10/19 12/26/19 History fluconazole 50 mg tablet 50 mg PO DAILY 11/15/19 12/26/19 History Physical Exam Vital Signs: Vital Signs: Last Vital Signs Temp 97.7 F 12/26/19 11:36 Pulse 88 12/26/19 11:36 Resp 20 12/26/19 11:36 BP 118/62 12/26/19 11:36 Pulse Ox 99 12/26/19 11:36 Body Mass Index 20.7 Const: General: cooperative HENMT: Head: Yes normal to inspection Mouth: Normal oral and palatal mucosa present Eyes: General: appearance normal, both eyes and all related structures Resp: Effort & Inspection: normal respiratory effort Cardio: Rate: regular rate Rhythm: regular rhythm GI: Inspection: Yes normal to inspection : General: No CVA tenderness Penis: normal penis Scrotum: scrotal swelling (one cm) on the left and localized Testes: Testes normal Male genitals images: 1. 1 cm swelling,.5 cm ulcer Back/Spine/Pelvis: Back: No CVA tenderness Assessment and Plan (1) Acute epididymo-orchitis: Problem details: He has scrotal discomfort He has concern over gram negative such as Klebsiella, Ecoli Less likely gram positive Status: Acute Would continue Zosyn Await final cultures blood Urology involvement Possible po Augmentin and Doxycycline outpatient,maybe 21 d Doxycycline Results Labs CBC & Chem 7: 12/26/19 05:42 12/26/19 05:42 Labs: Short CBC 12/25/19 12/26/19 Range/Units 18:43 05:42 WBC 17.0 H 15.7 H (4.8-10.8) X10*3/uL Hgb 12.6 L 12.2 L (14.0-18.0) g/dl Hct 37.1 L 36.2 L (42-52) % Plt Count 340 329 (160-400) X10*3/uL BMP 12/25/19 12/26/19 18:43 05:42 Sodium 130 L 133 L Potassium 4.3 4.7 Chloride 94 L 97 Carbon Dioxide 27 28 BUN 11 10 Creatinine 1.00 0.97 Calcium 8.6 8.8
[2019-12-26 16:07] LABS: Glucose, Whole Blood 187 mg/dL (60-115)
[2019-12-26] MEDS: Piperacillin Sodium/Tazobactam 3.375 GM in 0.9 % Sodium Chloride 50 ML IV ×2 (16:14→21:27)
[2019-12-26] MEDS: LORazepam 0.5 MG TABLET PO (16:15)
--- NOTE | 2019-12-26 16:55 | PM.UROCN ---
History of Present Illness Consult details Narrative: 84-year-old male. Well known to Urology. Has had extensive issues with bladder emptying. Requires condom catheter. Prior TURP. Prior use of Gallo catheter and prior attempts at [facility]. Progressive dementia has made this more difficult. Presents with persistent left scrotal pain. Had called during the weekend. Oral antibiotics been started but have been ineffective. Imaging performed at the hospital shows left epididymo-orchitis, left complex hydrocele and right epididymitis. WBC 17. On examination findings are consistent with ultrasound results with sensitive, enlarged left testicle reflecting epididymo-orchitis. Has been started on IV drug use and infectious disease consult pending. Review of Systems Review of Systems: Yes all other systems are reviewed and are negative PMFSH Past Medical History Medical History Bladder cancer CAD (coronary artery disease) Dementia Diabetes Dysphagia Neurogenic bladder NSTEMI (non-ST elevated myocardial infarction) Pulmonary embolism Family History Family History Father Unknown family medical history Mother Unknown family medical history Surgical History Surgical History Suprapubic catheter Social History Social History Household Members: Spouse Housing: Unknown / Unable to assess Alcohol intake: never Smoking Status: Unknown if ever smoked Use of substances other than those prescribed or required for medical reasons: Unknown Currently Displaying Signs/Symptoms of Drug Intoxication Withdrawal: No Advance Directives: No Advance Directives Information Provided: No Do you have thoughts of harming others: None Do you have a plan to hurt others: No Plan Recently lost weight without trying: Unsure Meds Allergies Allergy/AdvReac Type Severity Reaction Status Date / Time ibuprofen [IBUPROFEN] Allergy Unknown HIVES Verified 12/25/19 15:59 Home Medications Medication Instructions Recorded Confirmed Type apixaban 5 mg tablet 5 mg PO BID 11/10/19 12/26/19 History atorvastatin 80 mg tablet 80 mg PO DAILY 11/10/19 12/26/19 History blood sugar diagnostic #10 ea 11/10/19 12/26/19 History blood-glucose meter #1 ea 11/10/19 12/13/19 History carvedilol 6.25 mg tablet 6.25 mg PO BID 11/10/19 12/26/19 History cefuroxime axetil 500 mg tablet 500 mg PO Q12H 11/10/19 12/26/19 History cephalexin 500 mg capsule 500 mg PO Q6H 11/10/19 12/26/19 History enoxaparin 80 mg/0.8 mL 70 mg SUBCUT Q12H 11/10/19 12/26/19 History subcutaneous syringe glimepiride 1 mg tablet 1 mg PO DAILY 11/10/19 12/26/19 History insulin glargine 100 unit/mL (3 30 unit SUBCUT BEDTIME 11/10/19 12/26/19 History mL) subcutaneous pen lactulose 10 gram/15 mL oral 3 PO PRN 11/10/19 12/13/19 History solution lancets #100 ea 11/10/19 12/13/19 History levofloxacin 500 mg tablet 500 mg PO DAILY 11/10/19 12/26/19 History levofloxacin 750 mg tablet 750 mg PO DAILY 11/10/19 12/26/19 History lorazepam 0.5 mg tablet 0.5 mg PO Q6H PRN 11/10/19 12/26/19 History memantine 5 mg tablet 5 mg PO BID 11/10/19 12/26/19 History metformin 500 mg tablet 500 mg PO DAILY 11/10/19 12/26/19 History metformin 850 mg tablet 850 mg PO DAILY 11/10/19 12/26/19 History morphine concentrate 100 mg/5 mL 5 mg PO Q3H PRN 11/10/19 12/26/19 History (20 mg/mL) oral solution omeprazole 20 mg capsule,delayed 20 mg PO QAM 11/10/19 12/26/19 History release paroxetine HCl 20 mg tablet 20 mg PO QAM 11/10/19 12/13/19 History polyethylene glycol 3350 17 17 g PO Q12H 11/10/19 12/26/19 History gram/dose oral powder quetiapine 50 mg tablet 50 mg PO BEDTIME 11/10/19 12/26/19 History sulfamethoxazole 800 1 tab PO BID 11/10/19 12/26/19 History mg-trimethoprim 160 mg tablet tamsulosin 0.4 mg capsule 0.4 mg PO DAILY 11/10/19 12/26/19 History temazepam 30 mg capsule 30 mg PO BEDTIME PRN 11/10/19 12/26/19 History fluconazole 50 mg tablet 50 mg PO DAILY 11/15/19 12/26/19 History Physical Exam Vital Signs: Vital Signs: Last Vital Signs Temp 98 F 12/26/19 15:59 Pulse 90 12/26/19 15:59 Resp 18 12/26/19 15:59 BP 147/68 H 12/26/19 15:59 Pulse Ox 97 12/26/19 15:59 Body Mass Index 20.7 Const: General: cooperative, healthy appearing, comfortable and no acute distress Nutritional Appearance: average body habitus Orientation/consciousness: oriented to person, oriented to place and oriented to time Eyes: General: appearance normal, both eyes and all related structures Chest: Chest palpation & inspection: normal inspection of the chest Resp: Effort & Inspection: normal respiratory effort Cardio: Rate: regular rate GI: Inspection: Yes normal to inspection : Penis: normal penis and circumcised Meatus: meatus normal Scrotum: scrotum normal Testes: epididymal tenderness (With enlargement and epididymal pain) on the left Skin: Hair: normal Neuro: General: oriented to person, oriented to place and oriented to time Extrem: General: Yes normal to inspection Results Labs Result diagrams: 12/26/19 05:42 12/26/19 05:42 Labs: Abnormal lab results 12/25/19 12/25/19 12/26/19 Range/Units 18:43 18:43 03:29 WBC 17.0 H (4.8-10.8) X10*3/uL RBC 4.01 L (4.60-5.80) X10*6/uL Hgb 12.6 L (14.0-18.0) g/dl Hct 37.1 L (42-52) % MPV 8.4 L (9.4-12.4) fL Immature Gran % (Auto) 0.5 H (0.0-0.4) % Neut % (Auto) 76.6 H (45-73) % Lymph % (Auto) 14.2 L (20-40) % Abs Immat Gran (auto) 0.09 H (0.00-0.03) X10*3/uL Absolute Neuts (auto) 13.0 H (2.0-8.3) X10*3/uL Sodium 130 L (135-145) mmol/L Chloride 94 L (96-108) mmol/L POC Glucose 212 H (60-115) mg/dL Random Glucose 264 H D (60-115) mg/dL 12/26/19 12/26/19 12/26/19 Range/Units 05:42 05:42 08:38 WBC 15.7 H (4.8-10.8) X10*3/uL RBC 3.92 L (4.60-5.80) X10*6/uL Hgb 12.2 L (14.0-18.0) g/dl Hct 36.2 L (42-52) % MPV 8.8 L (9.4-12.4) fL Immature Gran % (Auto) 0.6 H (0.0-0.4) % Neut % (Auto) 73.7 H (45-73) % Lymph % (Auto) 16.1 L (20-40) % Abs Immat Gran (auto) 0.09 H (0.00-0.03) X10*3/uL Absolute Neuts (auto) 11.6 H (2.0-8.3) X10*3/uL Sodium 133 L (135-145) mmol/L Chloride (96-108) mmol/L POC Glucose 193 H (60-115) mg/dL Random Glucose 203 H (60-115) mg/dL 12/26/19 12/26/19 Range/Units 11:05 16:00 WBC (4.8-10.8) X10*3/uL RBC (4.60-5.80) X10*6/uL Hgb (14.0-18.0) g/dl Hct (42-52) % MPV (9.4-12.4) fL Immature Gran % (Auto) (0.0-0.4) % Neut % (Auto) (45-73) % Lymph % (Auto) (20-40) % Abs Immat Gran (auto) (0.00-0.03) X10*3/uL Absolute Neuts (auto) (2.0-8.3) X10*3/uL Sodium (135-145) mmol/L Chloride (96-108) mmol/L POC Glucose 207 H 187 H (60-115) mg/dL Random Glucose (60-115) mg/dL Short CBC 12/25/19 12/26/19 Range/Units 18:43 05:42 WBC 17.0 H 15.7 H (4.8-10.8) X10*3/uL Hgb 12.6 L 12.2 L (14.0-18.0) g/dl Hct 37.1 L 36.2 L (42-52) % Plt Count 340 329 (160-400) X10*3/uL BMP 12/25/19 12/26/19 18:43 05:42 Sodium 130 L 133 L Potassium 4.3 4.7 Chloride 94 L 97 Carbon Dioxide 27 28 BUN 11 10 Creatinine 1.00 0.97 Calcium 8.6 8.8 All other labs normal. IMPRESSION: Enlarged heterogeneous and hyperemic left epididymis and hyperemic left testicle concerning for epididymoorchitis. There is an associated complex left hydrocele that may represent a pyocele with internal debris. Assessment and Plan (1) Urinary retention with incomplete bladder emptying: Status: Acute (2) Acute epididymo-orchitis: Status: Acute Will review infectious disease recommendations Procedures Abscess I/D Date of Service: 12/26/19
--- NOTE | 2019-12-26 18:07 | HO.PM.IMPN ---
Subjective Subjective Date of Service: 12/26/19 Interval History: seen and examined this AM offered no complaints denied pain by late afternoon, was getting a bit confused by RN reports General - no fevers or chills Cardiovascular - no chest pain Respiratory - no shortness of breath or cough Abdominal- no abdominal pain, nausea, vomiting, diarrhea - denies testicular pain without palpation Physical Exam Vital Signs: Vital Signs: Last Vital Signs Temp 98 F 12/26/19 15:59 Pulse 90 12/26/19 15:59 Resp 18 12/26/19 15:59 BP 147/68 H 12/26/19 15:59 Pulse Ox 97 12/26/19 15:59 Body Mass Index 20.7 General - no acute distress, appears comfortable Cardiovascular - regular rate and rhythm, S1-S2 Lungs - normal respiratory effort, clear to auscultation bilaterally, no wheezing Abdomen - soft, nontender, no rebound regarding Extremities - no edema bilaterally Neuro - awake and alert, no focal deficits but disoriented - swelling L testicle well / TTP Objective Data Current Medications Generic Name Dose Route Start Last Admin Trade Name Janak PRN Reason Stop Dose Admin Apixaban 5 mg 12/26/19 09:00 12/26/19 09:40 Apixaban 5 Mg Tablet PO 5 mg BID BRISEYDA Administration Atorvastatin Calcium 80 mg 12/26/19 09:00 12/26/19 09:40 Atorvastatin Calcium 80 Mg Tablet PO 80 mg DAILY BRISEYDA Administration Carvedilol 6.25 mg 12/26/19 09:00 12/26/19 09:40 Carvedilol 6.25 Mg Tablet PO 6.25 mg BID BRISEYDA Administration Protocol Doxycycline Hyclate 100 mg 12/26/19 06:00 12/26/19 09:40 Doxycycline Hyclate 100 Mg Tablet PO 100 mg BID BRISEYDA Administration Piperacillin Sod/Tazobactam 50 mls @ 100 mls/hr 12/26/19 16:00 12/26/19 17:04 Sod 3.375 gm/ Sodium Chloride IV Infused Q6H BRISEYDA Infusion Insulin Human Lispro 0 unit 12/26/19 07:30 12/26/19 16:15 Insulin Lispro 100 Unit/Ml 3 Ml Vial SUBCUT 12/27/19 00:44 2 unit QIDACHS BRISEYDA Administration Protocol Lorazepam 0.5 mg 12/26/19 15:47 12/26/19 16:15 Lorazepam 0.5 Mg Tablet PO 0.5 mg Q8H PRN Administration anxiety/restlessness Memantine 5 mg 12/26/19 09:00 12/26/19 09:40 Memantine Hcl 5 Mg Tablet PO 5 mg BID BRISEYDA Administration Morphine Sulfate 2 mg 12/26/19 15:49 Morphine Sulfate 2 Mg/Ml Cartridge IVPUSH Q6H PRN Pain, Severe (Pain Scale 7-10) Omeprazole 20 mg 12/26/19 06:30 12/26/19 05:50 Omeprazole 20 Mg Capsule. PO 20 mg DAILY@0630 BRISEYDA Administration Quetiapine Fumarate 50 mg 12/26/19 21:00 Quetiapine Fumarate 50 Mg Tablet PO BEDTIME BRISEYDA Sodium Chloride 3 ml 12/26/19 08:00 12/26/19 16:15 0.9 % Sodium Chloride Flush 3 Ml Syringe IVFLUSH 3 ml QSHIFT BRISEYDA Administration Tamsulosin HCl 0.4 mg 12/26/19 09:00 12/26/19 09:40 Tamsulosin Hcl 0.4 Mg Capsule PO 0.4 mg DAILY BRISEYDA Administration Labs CBC & Chem 7: 12/26/19 05:42 12/26/19 05:42 Assessment and Plan (1) Acute epididymo-orchitis: Status: Acute Assessment and Plan: This is a 84 yo M with multiple related issues who presented to the hospital with L testicular pain is admitted for L Epididymo-orchitis. 1. Acute epididyymo-orchicits zosyn + doxy for now ID and Urology input appreciated f/u culture 2. DM sliding scale 3. History of PE Eliquis 4. CAD on eliquis, ? not aspirin coreg 5. HTN coreg 6. BPH flomax dvt pptx, eliquis d/w the patietns , Ruthie over the phone. She reports he is DNR/DNI and that she is HCP.
[2019-12-26 20:13] LABS: Glucose, Whole Blood 147 mg/dL (60-115)
[2019-12-26 21:29] LABS: Glucose, Whole Blood 139 mg/dL (60-115)
[2019-12-26] MEDS: QUEtiapine Fumarate 50 MG TABLET PO (22:25)
[2019-12-27] MEDS: Piperacillin Sodium/Tazobactam 3.375 GM in 0.9 % Sodium Chloride 50 ML IV ×4 (04:35→22:19)
[2019-12-27] MEDS: Omeprazole 20 MG CAPSULE.DR PO (05:45)
[2019-12-27 07:52] VITALS: BP 160/73; BP 191/91; PULSE 90; RESP 19; TEMP 36; O2SAT 96
[2019-12-27 08:18] LABS: Glucose, Whole Blood 230 mg/dL (60-115)
[2019-12-27] MEDS: carvediloL 6.25 MG TABLET PO ×2 (09:08→22:20)
[2019-12-27] MEDS: Memantine HCl 5 MG TABLET PO ×2 (09:08→22:20)
[2019-12-27] MEDS: Tamsulosin HCL 0.4 MG CAPSULE PO (09:08)
[2019-12-27] MEDS: 0.9 % Sodium Chloride Flush 3 ML SYRINGE IVFLUSH ×3 (09:08→22:21)
[2019-12-27] MEDS: Apixaban 5 MG TABLET PO ×2 (09:08→22:20)
[2019-12-27] MEDS: Atorvastatin Calcium 80 MG TABLET PO (09:09)
--- NOTE | 2019-12-27 10:17 | MHC.CM.PN ---
PATIENT LIVES WIT HIS . HE HAS A WHEELCHAIR, IN ROOM. PATIENT IS ALSO ACTIVE WITH [facility], WHO OFFERS A HOME HEALTH AIDE, PT, OT, AND VISITING NURSE. HOME HEALTH AIDE IS THROUGH [facility]. HCP/ ANDERSON ([phone]) IS UNABLE TO RECALL THE NAME OF THE [facility] IMM 12/26 IN CHART.
[2019-12-27 11:43] LABS: Glucose, Whole Blood 254 mg/dL (60-115)
--- NOTE | 2019-12-27 12:33 | HO.PM.IMPN ---
Subjective Subjective Date of Service: 12/26/19 Interval History: seen and examined this AM no issues reported over night ROS unreliable due to baseline dementia Physical Exam Vital Signs: Vital Signs: Last Vital Signs Temp 98 F 12/26/19 15:59 Pulse 90 12/26/19 15:59 Resp 18 12/26/19 15:59 BP 147/68 H 12/26/19 15:59 Pulse Ox 97 12/26/19 15:59 Body Mass Index 20.7 General - no acute distress, appears comfortable Cardiovascular - regular rate and rhythm, S1-S2 Lungs - normal respiratory effort, clear to auscultation bilaterally, no wheezing Abdomen - soft, nontender, no rebound regarding Extremities - no edema bilaterally Neuro - awake and alert, no focal deficits but disoriented - swelling L testicle well / TTP - improved compared to yesterday Objective Data Current Medications Generic Name Dose Route Start Last Admin Trade Name Freq PRN Reason Stop Dose Admin Apixaban 5 mg 12/26/19 09:00 12/27/19 09:08 Apixaban 5 Mg Tablet PO 5 mg BID BRISEYDA Administration Atorvastatin Calcium 80 mg 12/26/19 09:00 12/27/19 09:09 Atorvastatin Calcium 80 Mg Tablet PO 80 mg DAILY BRISEYDA Administration Carvedilol 6.25 mg 12/26/19 09:00 12/27/19 09:08 Carvedilol 6.25 Mg Tablet PO 6.25 mg BID BRISEYDA Administration Protocol Doxycycline Hyclate 100 mg 12/26/19 06:00 12/27/19 09:08 Doxycycline Hyclate 100 Mg Tablet PO 100 mg BID BRISEYDA Administration Piperacillin Sod/Tazobactam 50 mls @ 100 mls/hr 12/26/19 16:00 12/27/19 09:40 Sod 3.375 gm/ Sodium Chloride IV Infused Q6H BRISEYDA Infusion Insulin Human Lispro 0 unit 12/27/19 16:30 Insulin Lispro 100 Unit/Ml 3 Ml Vial SUBCUT QIDACHS [facility] Protocol Lorazepam 0.5 mg 12/26/19 15:47 12/26/19 16:15 Lorazepam 0.5 Mg Tablet PO 0.5 mg Q8H PRN Administration anxiety/restlessness Memantine 5 mg 12/26/19 09:00 12/27/19 09:08 Memantine Hcl 5 Mg Tablet PO 5 mg BID BRISEYDA Administration Morphine Sulfate 2 mg 12/26/19 15:49 Morphine Sulfate 2 Mg/Ml Cartridge IVPUSH Q6H PRN Pain, Severe (Pain Scale 7-10) Omeprazole 20 mg 12/26/19 06:30 12/27/19 05:45 Omeprazole 20 Mg Capsule. PO 20 mg DAILY@0630 BRISEYDA Administration Quetiapine Fumarate 50 mg 12/26/19 21:00 12/26/19 22:25 Quetiapine Fumarate 50 Mg Tablet PO 50 mg BEDTIME BRISEYDA Administration Sodium Chloride 3 ml 12/26/19 08:00 12/27/19 09:08 0.9 % Sodium Chloride Flush 3 Ml Syringe IVFLUSH 3 ml QSHIFT BRISEYDA Administration Tamsulosin HCl 0.4 mg 12/26/19 09:00 12/27/19 09:08 Tamsulosin Hcl 0.4 Mg Capsule PO 0.4 mg DAILY BRISEYDA Administration Labs CBC & Chem 7: 12/26/19 05:42 12/26/19 05:42 Microbiology Microbiology Results: Microbiology 12/25/19 20:53 Blood - Venous Blood Culture - Preliminary No growth after 24 hours. 12/25/19 20:53 Blood - Venous Blood Culture - Preliminary No growth after 24 hours. Assessment and Plan (1) Acute epididymo-orchitis: Status: Acute Assessment and Plan: This is a 84 yo M with multiple related issues who presented to the hospital with L testicular pain is admitted for L Epididymo-orchitis. 1. Acute epididyymo-orchicits zosyn + doxy for now (ID note reviwed -- will d/w ID to see if both needed) ID and Urology input appreciated f/u culture 2. DM sliding scale 3. History of PE Eliquis 4. CAD on eliquis, ? not aspirin coreg 5. HTN coreg 6. BPH flomax dvt pptx, eliquis d/w the patietns , Ruthie over the phone. She reports he is DNR/DNI and that she is HCP.
--- NOTE | 2019-12-27 12:34 | MHC.CM.PN ---
CALL FROM [facility] ([facility]) PATIENT IS ACTIVE WITH AGENCY. REFERRAL PLACED FOR RESUMPTION OF SERVICES.
[2019-12-27 15:54] VITALS: BP 139/73; PULSE 89; RESP 17; TEMP 36.1; O2SAT 95
[2019-12-27 16:29] LABS: Glucose, Whole Blood 247 mg/dL (60-115)
[2019-12-27] MEDS: Insulin Lispro 100 UNIT/ML 3 ML VIAL SUBCUT ×2 (16:37→22:19)
[2019-12-27 20:54] LABS: Glucose, Whole Blood 213 mg/dL (60-115)
[2019-12-27 22:20] VITALS: BP 138/73; PULSE 89
[2019-12-27] MEDS: QUEtiapine Fumarate 50 MG TABLET PO (22:21)
[2019-12-27 23:55] VITALS: BP 116/74; PULSE 89; RESP 18; TEMP 36.8; O2SAT 94
[2019-12-28] VITALS (9 sets, daily range): BP systolic 110–147; BP diastolic 68–89; PULSE 79–102; RESP 18–95; TEMP 35.9–36.8; O2SAT 95–98
[2019-12-28] MEDS: Piperacillin Sodium/Tazobactam 3.375 GM in 0.9 % Sodium Chloride 50 ML IV (03:47)
[2019-12-28 06:57] LABS: Hematocrit 36.4 % (42-52); Hemoglobin 12.3 g/dl (14.0-18.0); Mean Corpuscular HGB Conc 33.8 g/dl (31.0-36.0); Mean Corpuscular Volume 91.7 fL (80-98); Mean Platelet Volume 8.6 fL (9.4-12.4); Platelet Count 311 X10*3/uL (160-400); Red Blood Count 3.97 X10*6/uL (4.60-5.80)
[2019-12-28 07:39] LABS: Glucose, Whole Blood 196 mg/dL (60-115)
[2019-12-28] MEDS: Insulin Lispro 100 UNIT/ML 3 ML VIAL SUBCUT ×4 (08:11→21:04)
[2019-12-28] MEDS: carvediloL 6.25 MG TABLET PO ×2 (08:11→21:03)
[2019-12-28] MEDS: Apixaban 5 MG TABLET PO ×2 (08:11→21:03)
[2019-12-28] MEDS: Atorvastatin Calcium 80 MG TABLET PO (08:11)
[2019-12-28] MEDS: Memantine HCl 5 MG TABLET PO ×2 (08:11→21:04)
[2019-12-28] MEDS: 0.9 % Sodium Chloride Flush 3 ML SYRINGE IVFLUSH ×3 (08:51→23:26)
[2019-12-28] MEDS: PARoxetine HCL 20 MG TABLET PO (10:39)
--- NOTE | 2019-12-28 11:28 | MHC.CM.PN ---
PER PHYSICIAN ROUNDS, ONE MORE DAY OF IV ABX. PLAN IS TO RETURN HOME TOMORROW WITH RESUMPTION OF HIS SERVICES ALREADY IN PLACE. [facility] AND [facility] MADE AWARE OF PLANS.
[2019-12-28 11:32] LABS: Glucose, Whole Blood 173 mg/dL (60-115)
--- NOTE | 2019-12-28 14:30 | PM.UROPN ---
Subjective Subjective Interval history: Seen on rounding His left testicle is slowly resolving Reviewed id note Doxycycline therapy makes sense Can review as outpatient Physical Exam Vital Signs: Vital Signs: Last Vital Signs Temp 97.1 F 12/28/19 11:21 Pulse 89 12/28/19 11:21 Resp 18 12/28/19 11:21 BP 125/68 12/28/19 11:21 Pulse Ox 96 12/28/19 11:21 Body Mass Index 20.7 Const: General: cooperative, healthy appearing, comfortable and no acute distress Nutritional Appearance: average body habitus Orientation/consciousness: oriented to person, oriented to place and oriented to time Eyes: General: appearance normal, both eyes and all related structures Chest: Chest palpation & inspection: normal inspection of the chest Resp: Effort & Inspection: normal respiratory effort Cardio: Rate: regular rate GI: Inspection: Yes normal to inspection Skin: Hair: normal Neuro: General: oriented to person, oriented to place and oriented to time Extrem: General: Yes normal to inspection Urology Results Labs CBC & Chem 7: 12/28/19 06:23 12/26/19 05:42 Labs: Laboratory Results - last 24 hr 12/27/19 12/27/19 12/28/19 16:19 20:45 06:23 WBC 14.0 H RBC 3.97 L Hgb 12.3 L Hct 36.4 L MCV 91.7 MCH 31.0 MCHC 33.8 RDW 12.0 Plt Count 311 MPV 8.6 L Absolute Nucleated RBC 0.000 Nucleated RBC % (auto) 0.0 POC Glucose 247 H 213 H 12/28/19 12/28/19 07:22 11:24 WBC RBC Hgb Hct MCV MCH MCHC RDW Plt Count MPV Absolute Nucleated RBC Nucleated RBC % (auto) POC Glucose 196 H 173 H Progress Note: A&P Assessment and plan (1) Epididymitis: Status: Acute Assessment and Plan: Slow improvement epididymitis Fall Risk Details Current Medications: Current Medications Generic Name Dose Route Start Last Admin Trade Name Freq PRN Reason Stop Dose Admin Apixaban 5 mg 12/26/19 09:00 12/28/19 08:11 Apixaban 5 Mg Tablet PO 5 mg BID BRISEYDA Administration Atorvastatin Calcium 80 mg 12/26/19 09:00 12/28/19 08:11 Atorvastatin Calcium 80 Mg Tablet PO 80 mg DAILY BRISEYDA Administration Carvedilol 6.25 mg 12/26/19 09:00 12/28/19 08:11 Carvedilol 6.25 Mg Tablet PO 6.25 mg BID BRISEYDA Administration Protocol Doxycycline Hyclate 100 mg 12/26/19 06:00 12/28/19 08:12 Doxycycline Hyclate 100 Mg Tablet PO 100 mg BID BRISEYDA Administration Insulin Human Lispro 0 unit 12/27/19 16:30 12/28/19 12:29 Insulin Lispro 100 Unit/Ml 3 Ml Vial SUBCUT 2 unit QIDACHS BRISEYDA Administration Protocol Lorazepam 0.5 mg 12/26/19 15:47 12/26/19 16:15 Lorazepam 0.5 Mg Tablet PO 0.5 mg Q8H PRN Administration anxiety/restlessness Memantine 5 mg 12/26/19 09:00 12/28/19 08:11 Memantine Hcl 5 Mg Tablet PO 5 mg BID BRISEYDA Administration Morphine Sulfate 2 mg 12/26/19 15:49 Morphine Sulfate 2 Mg/Ml Cartridge IVPUSH Q6H PRN Pain, Severe (Pain Scale 7-10) Paroxetine HCl 20 mg 12/28/19 10:00 12/28/19 10:39 Paroxetine Hcl 20 Mg Tablet PO 20 mg DAILY BRISEYDA Administration Quetiapine Fumarate 50 mg 12/26/19 21:00 12/27/19 22:21 Quetiapine Fumarate 50 Mg Tablet PO 50 mg BEDTIME BRISEYDA Administration Sodium Chloride 3 ml 12/26/19 08:00 12/28/19 08:51 0.9 % Sodium Chloride Flush 3 Ml Syringe IVFLUSH 3 ml QSHIFT BRISEYDA Administration Time Spent With Patient Time: Total time spent is greater than 50% in coordination of care (as documented) at patient's floor/unit and/or counseling patient: Time with patient: less than 15 minutes
--- NOTE | 2019-12-28 14:50 | P.PNIM_ITS ---
Subjective Subjective Date of Service: 12/28/19 Interval History: seen and examined no issues reported this AM a bit sleepy but otherwise comfortable ROS unreliable due to baseline confusion Physical Exam Vital Signs: Vital Signs: Last Vital Signs Temp 98 F 12/26/19 15:59 Pulse 90 12/26/19 15:59 Resp 18 12/26/19 15:59 BP 147/68 H 12/26/19 15:59 Pulse Ox 97 12/26/19 15:59 Body Mass Index 20.7 General - no acute distress, appears comfortable Cardiovascular - regular rate and rhythm, S1-S2 Lungs - normal respiratory effort, clear to auscultation bilaterally, no wheezing Abdomen - soft, nontender, no rebound regarding Extremities - no edema bilaterally Neuro - awake and alert, no focal deficits but disoriented - swelling L testicle well / TTP - tenderness improving Objective Data Current Medications Generic Name Dose Route Start Last Admin Trade Name Freq PRN Reason Stop Dose Admin Apixaban 5 mg 12/26/19 09:00 12/28/19 08:11 Apixaban 5 Mg Tablet PO 5 mg BID BRISEYDA Administration Atorvastatin Calcium 80 mg 12/26/19 09:00 12/28/19 08:11 Atorvastatin Calcium 80 Mg Tablet PO 80 mg DAILY BRISEYDA Administration Carvedilol 6.25 mg 12/26/19 09:00 12/28/19 08:11 Carvedilol 6.25 Mg Tablet PO 6.25 mg BID BRISEYDA Administration Protocol Doxycycline Hyclate 100 mg 12/26/19 06:00 12/28/19 08:12 Doxycycline Hyclate 100 Mg Tablet PO 100 mg BID BRISEYDA Administration Insulin Human Lispro 0 unit 12/27/19 16:30 12/28/19 12:29 Insulin Lispro 100 Unit/Ml 3 Ml Vial SUBCUT 2 unit QIDACHS [facility] Administration Protocol Lorazepam 0.5 mg 12/26/19 15:47 12/26/19 16:15 Lorazepam 0.5 Mg Tablet PO 0.5 mg Q8H PRN Administration anxiety/restlessness Memantine 5 mg 12/26/19 09:00 12/28/19 08:11 Memantine Hcl 5 Mg Tablet PO 5 mg BID BRISEYDA Administration Morphine Sulfate 2 mg 12/26/19 15:49 Morphine Sulfate 2 Mg/Ml Cartridge IVPUSH Q6H PRN Pain, Severe (Pain Scale 7-10) Paroxetine HCl 20 mg 12/28/19 10:00 12/28/19 10:39 Paroxetine Hcl 20 Mg Tablet PO 20 mg DAILY BRISEYDA Administration Quetiapine Fumarate 50 mg 12/26/19 21:00 12/27/19 22:21 Quetiapine Fumarate 50 Mg Tablet PO 50 mg BEDTIME BRISEYDA Administration Sodium Chloride 3 ml 12/26/19 08:00 12/28/19 08:51 0.9 % Sodium Chloride Flush 3 Ml Syringe IVFLUSH 3 ml QSHIFT BRISEYDA Administration Labs CBC & Chem 7: 12/28/19 06:23 12/26/19 05:42 Microbiology Microbiology Results: Microbiology 12/25/19 20:53 Blood - Venous Blood Culture - Preliminary No growth after 48 hours. 12/25/19 20:53 Blood - Venous Blood Culture - Preliminary No growth after 48 hours. Assessment and Plan (1) Acute epididymo-orchitis: Status: Acute Assessment and Plan: This is a 84 yo M with multiple related issues who presented to the hospital with L testicular pain is admitted for L Epididymo-orchitis. 1. Acute epididyymo-orchicits blood cx negative today, stop zosyn -- doxy total 3 weeks End date 01/15/2020 ID and Urology input appreciated 2. DM sliding scale 3. History of PE Eliquis 4. CAD on eliquis, ? not aspirin coreg 5. HTN coreg 6. BPH flomax dvt pptx, eliquis d/w the patietns , Ruthie over the phone. She reports he is DNR/DNI and that she is HCP. dispo: home with resumption of his services by tomorrow
[2019-12-28 16:43] LABS: Glucose, Whole Blood 220 mg/dL (60-115)
[2019-12-28 20:47] LABS: Glucose, Whole Blood 233 mg/dL (60-115)
[2019-12-28] MEDS: QUEtiapine Fumarate 50 MG TABLET PO (21:04)
[2019-12-29 04:00] VITALS: BP 139/70; PULSE 80; RESP 19; TEMP 36.2; O2SAT 96
[2019-12-29 07:16] VITALS: BP 122/61; PULSE 88; RESP 19; TEMP 36.1; O2SAT 94
[2019-12-29 07:24] LABS: Glucose, Whole Blood 170 mg/dL (60-115)
--- NOTE | 2019-12-29 08:48 | PM.DS ---
DS: Providers Provider Date of admission: 12/26/19 00:45 Primary care physician: JOEY Martinez Consults: 12/26/19 03:00 Consult to Infectious Diseases Routine Consulting Provider: Diana Leonard Reason for consultation: epididymoorchitis Has provider been notified: No Consult to Urology Routine Consulting Provider: Shelton Whitfield Reason for consultation: epididymoorchitis/hydrocele Has provider been notified: No DS: Diagnosis Discharge Diagnosis (1) Acute epididymo-orchitis: Status: Acute (2) Diabetes: Status: Acute (3) CAD (coronary artery disease): Status: Acute DS: Medications Discharge Medications Home Medications: Home Medications Medication Instructions Recorded Confirmed apixaban 5 mg tablet 5 mg PO BID 11/10/19 12/26/19 atorvastatin 80 mg tablet 80 mg PO DAILY 11/10/19 12/26/19 blood sugar diagnostic #10 ea 11/10/19 12/26/19 blood-glucose meter #1 ea 11/10/19 12/13/19 carvedilol 6.25 mg tablet 6.25 mg PO BID 11/10/19 12/26/19 insulin glargine 100 unit/mL (3 15 unit SUBCUT BEDTIME 11/10/19 12/27/19 mL) subcutaneous pen lancets #100 ea 11/10/19 12/13/19 memantine 5 mg tablet 5 mg PO BID 11/10/19 12/26/19 metformin 850 mg tablet 850 mg PO BID 11/10/19 12/27/19 paroxetine HCl 20 mg tablet 20 mg PO QAM 11/10/19 12/27/19 quetiapine 50 mg tablet 50 mg PO BEDTIME 11/10/19 12/26/19 insulin aspart U-100 [Novolog 0 unit SUBCUT DIRECTED 12/27/19 12/27/19 Flexpen U-100 Insulin] Previous Rx's Medication Instructions Recorded doxycycline hyclate 100 mg PO BID #36 tab 12/29/19 DS: Summary Hospital Course Hospital Course: Patient was started on IV zosyn and doxycycline. He was evaluated by both ID and Urology. No surgical intervention was needed and both recommended Doxycycline for 3 weeks after blood cultures were negative. Once blood cx were negative, zosyn was discontinued and he was discharged home with 18 more days of PO doxycyline. He is to follow up with urology in 2 weeks from discharge. Time Spent with Patient Time attestation: Total time spent providing and/or coordinating discharge services: Physical Exam Vital Signs: Vital Signs: Last Vital Signs Temp 97.0 F 12/29/19 07:16 Pulse 88 12/29/19 07:16 Resp 19 12/29/19 07:16 BP 122/61 12/29/19 07:16 Pulse Ox 94 12/29/19 07:16 Body Mass Index 20.7 General - no acute distress, appears comfortable Cardiovascular - regular rate and rhythm, S1-S2 Lungs - normal respiratory effort, clear to auscultation bilaterally, no wheezing Abdomen - soft, nontender, no rebound regarding Extremities - no edema bilaterally Neuro - awake and alert, no focal deficits but disoriented - swelling L testicle well / TTP - tenderness improving DS: Data Data Completed and Pending Labs on day of discharge: Laboratory Last Values WBC 14.0 X10*3/uL (4.8-10.8) H 12/28/19 06:23 RBC 3.97 X10*6/uL (4.60-5.80) L 12/28/19 06:23 Hgb 12.3 g/dl (14.0-18.0) L 12/28/19 06:23 Hct 36.4 % (42-52) L 12/28/19 06:23 MCV 91.7 fL (80-98) 12/28/19 06:23 MCH 31.0 pg (27.0-33.0) 12/28/19 06:23 MCHC 33.8 g/dl (31.0-36.0) 12/28/19 06:23 RDW 12.0 % (11.0-16.0) 12/28/19 06:23 Plt Count 311 X10*3/uL (160-400) 12/28/19 06:23 MPV 8.6 fL (9.4-12.4) L 12/28/19 06:23 Immature Gran % (Auto) 0.6 % (0.0-0.4) H 12/26/19 05:42 Neut % (Auto) 73.7 % (45-73) H 12/26/19 05:42 Lymph % (Auto) 16.1 % (20-40) L 12/26/19 05:42 Prentiss % (Auto) 6.9 % (2-11) 12/26/19 05:42 Eos % (Auto) 2.3 % (0-4) 12/26/19 05:42 Baso % (Auto) 0.4 % (0-2) 12/26/19 05:42 Lymph # (Auto) 2.5 X10*3/uL (1.2-4.9) 12/26/19 05:42 Prentiss # (Auto) 1.1 X10*3/uL (0.1-1.2) 12/26/19 05:42 Eos # (Auto) 0.4 X10*3/uL (0.0-0.4) 12/26/19 05:42 Baso # (Auto) 0.1 X10*3/uL (0.0-0.2) 12/26/19 05:42 Abs Immat Gran (auto) 0.09 X10*3/uL (0.00-0.03) H 12/26/19 05:42 Absolute Neuts (auto) 11.6 X10*3/uL (2.0-8.3) H 12/26/19 05:42 Absolute Nucleated RBC 0.000 X10*3/uL (0.0-0.012) 12/28/19 06:23 Nucleated RBC % (auto) 0.0 /100WBC (0.0-0.2) 12/28/19 06:23 Sodium 133 mmol/L (135-145) L 12/26/19 05:42 Potassium 4.7 mmol/l (3.3-5.1) 12/26/19 05:42 Chloride 97 mmol/L (96-108) 12/26/19 05:42 Carbon Dioxide 28 mmol/L (22-29) 12/26/19 05:42 Anion Gap 13 (12-20) 12/26/19 05:42 BUN 10 mg/dL (9-16) 12/26/19 05:42 Creatinine 0.97 mg/dL (0.5-1.4) 12/26/19 05:42 Estim Creat Clear Calc 54.5 12/26/19 05:42 Estimated GFR > 60 12/26/19 05:42 POC Glucose 170 mg/dL (60-115) H 12/29/19 07:15 Random Glucose 203 mg/dL (60-115) H 12/26/19 05:42 Lactic Acid 1.4 mmol/L (0.5-2.0) 12/25/19 20:53 Calcium 8.8 mg/dL (8.4-10.2) 12/26/19 05:42 COVID-19 (REGAN) Negative (Negative) 12/25/19 23:49 COVID-19 Clin Com See Note 12/25/19 23:49 Preliminary micro results at discharge 12/25/19 20:53 Blood Culture - Preliminary Blood - Venous No growth after 48 hours. 12/25/19 20:53 Blood Culture - Preliminary Blood - Venous No growth after 48 hours. Discharge Plan Discharge Patient Disposition: Home Health Service Referrals: Shelton Whitfield MD [Physician] - Isaiah Rockwell FNP-SANGEETHA [Primary Care Provider] - 1 Week (TELE VISIT 01/11/2020 @7 AM. Isaiah Rockwell will call you to discuss your hospital stay. If you can't keep this appointment please call and reschedule.) Discharge Medications: New doxycycline hyclate 100 mg Tablet 100 mg PO BID Qty: 36 RF: 0 Continued insulin aspart U-100 [Novolog Flexpen U-100 Insulin] 100 unit/mL (3 mL) insulin pen 0 unit subcut DIRECTED RF: 0 (DME) blood sugar diagnostic Strip See Rx Instructions strip .ROUTE .MEDSUPPLY Qty: 10 RF: 0 metformin 850 mg tablet 850 mg PO BID RF: 0 apixaban 5 mg tablet 5 mg PO BID RF: 0 quetiapine 50 mg tablet 50 mg PO BEDTIME RF: 0 paroxetine HCl 20 mg tablet 20 mg PO QAM RF: 0 (DME) lancets Misc See Rx Instructions ea .ROUTE .MEDSUPPLY Qty: 100 RF: 0 carvedilol 6.25 mg tablet 6.25 mg PO BID RF: 0 memantine 5 mg tablet 5 mg PO BID RF: 0 (DME) blood-glucose meter Misc See Rx Instructions ea .ROUTE BID Qty: 1 RF: 0 insulin glargine 100 unit/mL (3 mL) insulin pen 15 unit subcut BEDTIME RF: 0 atorvastatin 80 mg tablet 80 mg PO DAILY RF: 0 Discharge Orders: Discharge Order (Routine); Ordered 12/29/19 Ordered By: Juan Francisco Munoz Diet: advance to usual diet Activity on Discharge: As tolerated Visit Report Forms: Patient Portal Discharge page Care Plan Goals: To stay healthy and out of the hospital. Health Concerns: epididyymo-orchicits - Take Doxycycline 100mg twice daily for 18 more days Follow up with Dr. Whitfield in 2 weeks Plan of Treatment: epididyymo-orchicits - Take Doxycycline 100mg twice daily for 18 more days Follow up with Dr. Whitfield in 2 weeks
[2019-12-29] MEDS: Insulin Lispro 100 UNIT/ML 3 ML VIAL SUBCUT (08:58)
[2019-12-29 08:59] VITALS: BP 122/61; PULSE 88
[2019-12-29] MEDS: Memantine HCl 5 MG TABLET PO (08:59)
[2019-12-29] MEDS: carvediloL 6.25 MG TABLET PO (08:59)
[2019-12-29] MEDS: PARoxetine HCL 20 MG TABLET PO (08:59)
[2019-12-29] MEDS: 0.9 % Sodium Chloride Flush 3 ML SYRINGE IVFLUSH (08:59)
[2019-12-29] MEDS: Atorvastatin Calcium 80 MG TABLET PO (08:59)
[2019-12-29] MEDS: Apixaban 5 MG TABLET PO (08:59)
--- NOTE | 2019-12-29 11:14 | MHC.CM.PN ---
Met with patient. Has dementia. Being fed breakfast. Happy to be going home today. Spoke with , Ruthie([phone]). Made aware of discharge. [facility] booked for 10:30 am. Pt will resume services through [facility] Referral updated
== END 2019-12-29 11:40 | disposition home health service (06) | DRG 728 ==
LOC: HO.ED 22:39 → HO.IMC 12-26 01:40 → HO.S3 12-27 01:33
PROVIDERS: Admitting Provider Internal Medicine; Emergency Provider Internal Medicine; PCP Nurse Practitioner Family; Visit Provider Family Medicine
DX: N45.3 Epididymo-orchitis (principal); E87.1 Hypo-osmolality and hyponatremia; G30.9 Alzheimer's disease, unspecified; F02.80 Dementia in other diseases classified elsewhere, unspecified severity, without behavioral disturbance, psychotic disturbance, mood disturbance, and anxiety; I25.10 Atherosclerotic heart disease of native coronary artery without angina pectoris; E11.9 Type 2 diabetes mellitus without complications; N40.1 Benign prostatic hyperplasia with lower urinary tract symptoms; R33.8 Other retention of urine; Z20.828 Contact with and (suspected) exposure to other viral communicable diseases; E86.0 Dehydration; Z87.891 Personal history of nicotine dependence; Z86.711 Personal history of pulmonary embolism; Z88.6 Allergy status to analgesic agent; Z79.4 Long term (current) use of insulin; Z79.01 Long term (current) use of anticoagulants; Z79.899 Other long term (current) drug therapy; Z66 Do not resuscitate
CPT/HCPCS: 36415; 76870; 80048; 82947; 83605; 85025; 85027; 87040; 87635; 96360; 99285; J2543

== ENCOUNTER 2020-01-08 10:48 | Emergency (ER) | payer MEDICARE, MEDICAID, SELFPAY ==
--- NOTE | 2020-01-08 | XR_ITS ---
EXAMINATION: XR HIP, RIGHT CLINICAL INFORMATION: Fall. COMPARISON: None TECHNIQUE: Three views of the right hip. One view AP pelvis FINDINGS: AP pelvis: The hip joints and SI joints are symmetrical. No fracture or dislocation seen involving the pelvic bone. There are degenerative disc changes with moderate spondylosis L5-S1 disc level. The soft tissues are normal. 2 views of right hip reveal no visible acute fracture or dislocation. No bony erosive changes or loose body seen. The soft tissues are normal. XR/XR hip RT w [id number] IMPRESSION: Unremarkable AP pelvis and right hip exam
[2020-01-08 11:23] VITALS: PULSE 99; RESP 18; TEMP 36.3; O2SAT 96; BMI 24.3
--- NOTE | 2020-01-08 14:00 | PC.NURSE ---
transported via wc to main ed rm 19H, pt remains sitting in wc, report to MICHELL Serrano
--- NOTE | 2020-01-08 14:01 | PC.NURSE ---
reports pt with increased confusion today and that he will not walk r/t pain
--- NOTE | 2020-01-08 14:08 | CT_ITS ---
EXAMINATION: CT PELVIS WITHOUT CONTRAST CLINICAL INFORMATION: Fall and right hip. Unable to ambulate. COMPARISON: None TECHNIQUE: Helical scanning was performed with submillimeter collimation through the pelvis. Sagittal and coronal multiplanar 2-D reconstructions were obtained. This CT examination was performed using dose optimization techniques as appropriate, variously including the following: *Automated exposure control *Adjustment of mA and/or kV according to patient size (this includes techniques or standardized protocols for targeted exams where dose is matched to indication/reason for exam; i.e. extremities or head) *Use of iterative reconstruction technique DLP: 267 mGy-cm FINDINGS: PELVIS: There is scattered stool seen in the colon. A few scattered diverticula are seen in sigmoid colon. Mild fecal impaction in the rectum. Appendix and the small bowel loops are normal caliber. There is no free air or free fluid. The abdominal wall appears unremarkable. There is diffuse bladder wall thickening and bilateral periureteral diverticula. No free fluid. No abnormal pelvic lymph nodes or mass. OSSEOUS STRUCTURES: There is diffuse osteopenia. No visible acute fracture involving the pelvic bones. There is normal symmetry of bilateral hip joints without any acute fracture or dislocation. Visualized L4, L5 vertebra, sacrum and SI joints are unremarkable. There is mild degenerative disc changes L5-S1 disc level. CT/CT pelvis wo con IMPRESSION: No acute fracture dislocation involving pelvic bones or the hip joints. Moderate constipation. Sigmoid diverticulosis without diverticulitis.
--- NOTE | 2020-01-08 14:13 | ED_ITS ---
HPI - Fall General Chief Complaint: Extremity Injury, Lower <BRIAN Matta - Last Filed: 01/08/20 17:17> Stated Complaint: FELL RT HIP PAIN <BRIAN Matta - Last Filed: 01/08/20 17:17> Time Seen by Provider: 01/08/20 13:58 <BRIAN Matta - Last Filed: 01/08/20 17:17> Source: patient <BRIAN Matta - Last Filed: 01/08/20 17:17> Mode of arrival: wheelchair <BRIAN Matta - Last Filed: 01/08/20 17:17> History of Present Illness HPI Narrative: 84-year-old male with a past medical history of dementia, DM, CAD, bladder CA, neurogenic bladder, NSTEMI, PE on Eliquis, presenting to ED complaining of right hip pain s/p mechanical fall this morning. Per patient tried to get out of his bed independently and fell between his bed and hers. At baseline patient needs assistance with mobility, however patient got up on his own. Fall was witnessed, denies head trauma or LOC. reports patient has not ambulat ed since fall. Denies injury to other area. <BRIAN Matta - Last Filed: 01/08/20 17:17> MD complaint: fall <BRIAN Matta - Last Filed: 01/08/20 17:17> Related Data Home Medications: Home Medications Medication Instructions Recorded Confirmed apixaban 5 mg tablet 5 mg PO BID 11/10/19 01/19/20 blood sugar diagnostic #10 ea 11/10/19 01/19/20 blood-glucose meter #1 ea 11/10/19 01/19/20 carvedilol 6.25 mg tablet 6.25 mg PO BID 11/10/19 01/19/20 insulin glargine 100 unit/mL (3 15 unit SUBCUT BEDTIME 11/10/19 01/19/20 mL) subcutaneous pen lancets #100 ea 11/10/19 01/19/20 memantine 5 mg tablet 5 mg PO BID 11/10/19 01/19/20 metformin 850 mg tablet 850 mg PO BIDWM 11/10/19 01/19/20 paroxetine HCl 20 mg tablet 20 mg PO QAM 11/10/19 01/19/20 insulin aspart U-100 [Novolog See Protocol SUBCUT DIRECTED 12/27/19 01/08/20 Flexpen U-100 Insulin] Previous Rx's Medication Instructions Recorded doxycycline hyclate 100 mg PO BID #36 tab 12/29/19 quetiapine 200 mg tablet 200 mg PO BEDTIME 30 Days #30 tab 01/24/20 cefixime 400 mg PO DAILY 10 Days #10 cap 01/27/20 clotrimazole [Lotrimin AF 1 appl TOPICAL TID #28.4 g 01/27/20 (clotrimazole)] doxycycline hyclate 100 mg PO BID #20 cap 01/27/20 sulfamethoxazole 800 1 tab PO BID 14 Days #28 tab 01/27/20 mg-trimethoprim 160 mg tablet <BRIAN Matta - Last Filed: 01/08/20 17:17> Allergies/Adverse Reactions: Allergies Allergy/AdvReac Type Severity Reaction Status Date / Time ibuprofen [IBUPROFEN] Allergy Unknown HIVES Verified 01/19/20 11:38 <BRIAN Matta - Last Filed: 01/08/20 17:17> Review of Systems Review of Systems: Constitutional: No Fever, No Chills Musculoskeletal:+ joint pain, No Myalgias, No Joint Swelling Skin: No Skin Lesions, No rash History obtained from <BRIAN Matta - Last Filed: 01/08/20 17:17> Yes all other systems are reviewed and are negative <BRIAN Matta - Last Filed: 01/08/20 17:17> [facility] Past Medical History Attestation statement: The following information was validated with the patient. <BRIAN Matta - Last Filed: 01/08/20 17:17> Medical History: Medical History Bladder cancer CAD (coronary artery disease) Dementia Diabetes Dysphagia Neurogenic bladder NSTEMI (non-ST elevated myocardial infarction) Pulmonary embolism <BRIAN Matta - Last Filed: 01/08/20 17:17> Surgical History: Surgical History Suprapubic catheter <BRIAN Matta - Last Filed: 01/08/20 17:17> Family History Family History: Family History Father Unknown family medical history Mother Unknown family medical history <BRIAN Matta - Last Filed: 01/08/20 17:17> Social History Social History: Social History Household Members: Spouse Housing: Unknown / Unable to assess Alcohol intake: unknown Smoking Status: Unknown if ever smoked Advance Directives: No Advance Directives Information Provided: Yes service: No Current occupational status: disabled <BRIAN Matta - Last Filed: 01/08/20 17:17> Physical Exam Vital Signs: Vital Signs: Last Vital Signs Temp 98.3 F 01/10/20 06:00 Pulse 74 01/10/20 08:59 Resp 18 01/10/20 06:00 BP 134/61 01/10/20 06:00 Pulse Ox 96 01/10/20 06:00 Body Mass Index 24.3 <BRIAN Matta - Last Filed: 01/08/20 17:17> Vital Signs: Last Vital Signs Temp 98.3 F 01/10/20 06:00 Pulse 74 01/10/20 08:59 Resp 18 01/10/20 06:00 BP 134/61 01/10/20 06:00 Pulse Ox 96 01/10/20 06:00 Body Mass Index 24.3 <Halie Bolton DO - Last Filed: 01/09/20 06:43> Vital Signs: Last Vital Signs Temp 98.3 F 01/10/20 06:00 Pulse 74 01/10/20 08:59 Resp 18 01/10/20 06:00 BP 134/61 01/10/20 06:00 Pulse Ox 96 01/10/20 06:00 Body Mass Index 24.3 <Denise Cabral NP - Last Filed: 01/10/20 16:20> Vital Signs: Last Vital Signs Temp 98.3 F 01/10/20 06:00 Pulse 74 01/10/20 08:59 Resp 18 01/10/20 06:00 BP 134/61 01/10/20 06:00 Pulse Ox 96 01/10/20 06:00 Body Mass Index 24.3 <Jeffry Ho MD - Last Filed: 01/28/20 20:30> Const: Other: Pleasantly demented <Stephanie Shi VT - Last Filed: 01/08/20 17:17> General: cooperative and healthy appearing <Stephanie Shi VT - Last Filed: 01/08/20 17:17> Limitations: no limitations <Stephanie Jose Guadalupe VT - Last Filed: 01/08/20 17:17> HENMT: Other: No signs of trauma <Stephaniedebbie Shi VT - Last Filed: 01/08/20 17:17> Head: Yes normal to inspection <Stephanie Jose Guadalupe VT - Last Filed: 01/08/20 17:17> Ears: hearing grossly normal bilaterally <Stephanie Jose Guadalupe VT - Last Filed: 01/08/20 17:17> General nose exam: Normal external nose present <Stephanie Shi VT - Last Filed: 01/08/20 17:17> Face and sinus: Yes normal facial exam <Stephanie Shi VT - Last Filed: 01/08/20 17:17> Eyes: General: appearance normal, both eyes and all related structures <Stephanie Shi VT - Last Filed: 01/08/20 17:17> EOM: EOMs intact bilaterally <Stephanie Shi VT - Last Filed: 01/08/20 17:17> Neck: Other: No midline cervical spinous tenderness <Stephanie Shi VT - Last Filed: 01/08/20 17:17> Neck: Yes normal visual inspection <Stephanie Shi VT - Last Filed: 01/08/20 17:17> Resp: Effort & Inspection: normal respiratory effort <Stephanie Jose Guadalupe VT - Last Filed: 01/08/20 17:17> Cardio: Peripheral pulses: dorsalis pedis present <Stephanie Shi VT - Last Filed: 01/08/20 17:17> GI: Inspection: Yes normal to inspection <Stephanie Jose Guadalupe VT - Last Filed: 01/08/20 17:17> Palpation (GI): Soft to palpation, nontender, no guarding and not rigid <Stephanie Shi VT - Last Filed: 01/08/20 17:17> Back/Spine/Pelvis: Other: No midline thoracic/lumbar spinous tenderness <BRIAN Matta - Last Filed: 01/08/20 17:17> Skin: Rashes: no rashes <BRIAN Matta - Last Filed: 01/08/20 17:17> Wounds: no wounds <BRIAN Matta - Last Filed: 01/08/20 17:17> Neuro: Gait exam (Neuro): Normal gait present <BRIAN Matta - Last Filed: 01/08/20 17:17> Extrem: Other: No appreciable external hip deformity. +ttp to bilateral hips > right. ROM right hip limited due to pain. NV intact distally bilaterally. Pelvis stable <BRIAN Matta - Last Filed: 01/08/20 17:17> General: Yes normal to inspection <BRIAN Matta - Last Filed: 01/08/20 17:17> Course Course Course Narrative: -1419--right hip/pelvis x-ray unremarkable > will obtain CT's -1700--CT without acute fracture/dislocation involving pelvic bones or the hip joints. Moderate constipation. >> imaging results discussed with patient's , plan for PT/case management for likely STR -2100-- ED care transferred to [facility] pending PT/CM <BRIAN Matta - Last Filed: 01/08/20 17:17> I have reviewed the chart <Jeffry Ho MD - Last Filed: 01/28/20 20:30> MDM - Fall MDM Narrative Medical decision making narrative: 84-year-old male with a past medical history of dementia, DM, CAD, bladder CA, neurogenic bladder, NSTEMI, PE on Eliquis, presenting to ED complaining of right hip pain s/p mechanical fall this morning. On exam VSS, NAD/well- appearing, pleasantly demented, bilateral hip tenderness on exam. NV intact. No midline spinous tenderness throughout. Concern for hip/pelvic fracture. History taken from . plan: Imaging <BRIAN Matta - Last Filed: 01/08/20 17:17> Lab Data Result diagrams: : 01/09/20 09:39 <BRIAN Matta - Last Filed: 01/08/20 17:17> Labs: Lab Results 12/02/2701/09/20 01/09/20 Range/Units 00:24 07:02 09:39 Creatinine 0.82 (0.5-1.4) mg/dL Estim Creat Clear Calc 67.1 Estimated GFR > 60 POC Glucose 231 H (60-115) mg/dL Coronavirus (PCR) NEGATIVE (Negative) Influenza Type A (PCR) NEGATIVE (Negative) Influenza Type B (PCR) NEGATIVE (Negative) RSV RNA Qual (PCR) NEGATIVE (Negative) 01/09/20 01/09/20 01/09/20 Range/Units 11:35 16:52 21:04 Creatinine (0.5-1.4) mg/dL Estim Creat Clear Calc Estimated GFR POC Glucose 168 H 169 H 145 H (60-115) mg/dL Coronavirus (PCR) (Negative) Influenza Type A (PCR) (Negative) Influenza Type B (PCR) (Negative) RSV RNA Qual (PCR) (Negative) 01/10/20 01/10/20 Range/Units 07:17 11:23 Creatinine (0.5-1.4) mg/dL Estim Creat Clear Calc Estimated GFR POC Glucose 148 H 174 H (60-115) mg/dL Coronavirus (PCR) (Negative) Influenza Type A (PCR) (Negative) Influenza Type B (PCR) (Negative) RSV RNA Qual (PCR) (Negative) <BRIAN Matta - Last Filed: 01/08/20 17:17> Lab Results 01/09/20 01/09/20 01/09/20 Range/Units 00:24 07:02 09:39 Creatinine 0.82 (0.5-1.4) mg/dL Estim Creat Clear Calc 67.1 Estimated GFR > 60 POC Glucose 231 H (60-115) mg/dL Coronavirus (PCR) NEGATIVE (Negative) Influenza Type A (PCR) NEGATIVE (Negative) Influenza Type B (PCR) NEGATIVE (Negative) RSV RNA Qual (PCR) NEGATIVE (Negative) 01/09/20 01/09/20 01/09/20 Range/Units 11:35 16:52 21:04 Creatinine (0.5-1.4) mg/dL Estim Creat Clear Calc Estimated GFR POC Glucose 168 H 169 H 145 H (60-115) mg/dL Coronavirus (PCR) (Negative) Influenza Type A (PCR) (Negative) Influenza Type B (PCR) (Negative) RSV RNA Qual (PCR) (Negative) 01/10/20 01/10/20 Range/Units 07:17 11:23 Creatinine (0.5-1.4) mg/dL Estim Creat Clear Calc Estimated GFR POC Glucose 148 H 174 H (60-115) mg/dL Coronavirus (PCR) (Negative) Influenza Type A (PCR) (Negative) Influenza Type B (PCR) (Negative) RSV RNA Qual (PCR) (Negative) <Halie Bolton DO - Last Filed: 01/09/20 06:43> Lab Results 01/09/20 01/09/20 01/09/20 Range/Units 00:24 07:02 09:39 Creatinine 0.82 (0.5-1.4) mg/dL Estim Creat Clear Calc 67.1 Estimated GFR > 60 POC Glucose 231 H (60-115) mg/dL Coronavirus (PCR) NEGATIVE (Negative) Influenza Type A (PCR) NEGATIVE (Negative) Influenza Type B (PCR) NEGATIVE (Negative) RSV RNA Qual (PCR) NEGATIVE (Negative) 01/09/20 01/09/20 01/09/20 Range/Units 11:35 16:52 21:04 Creatinine (0.5-1.4) mg/dL Estim Creat Clear Calc Estimated GFR POC Glucose 168 H 169 H 145 H (60-115) mg/dL Coronavirus (PCR) (Negative) Influenza Type A (PCR) (Negative) Influenza Type B (PCR) (Negative) RSV RNA Qual (PCR) (Negative) 01/10/20 01/10/20 Range/Units 07:17 11:23 Creatinine (0.5-1.4) mg/dL Estim Creat Clear Calc Estimated GFR POC Glucose 148 H 174 H (60-115) mg/dL Coronavirus (PCR) (Negative) Influenza Type A (PCR) (Negative) Influenza Type B (PCR) (Negative) RSV RNA Qual (PCR) (Negative) <Denise Cabral NP - Last Filed: 01/10/20 16:20> Lab Results 01/09/20 01/09/20 01/09/20 Range/Units 00:24 07:02 09:39 Creatinine 0.82 (0.5-1.4) mg/dL Estim Creat Clear Calc 67.1 Estimated GFR > 60 POC Glucose 231 H (60-115) mg/dL Coronavirus (PCR) NEGATIVE (Negative) Influenza Type A (PCR) NEGATIVE (Negative) Influenza Type B (PCR) NEGATIVE (Negative) RSV RNA Qual (PCR) NEGATIVE (Negative) 01/09/20 01/09/20 01/09/20 Range/Units 11:35 16:52 21:04 Creatinine (0.5-1.4) mg/dL Estim Creat Clear Calc Estimated GFR POC Glucose 168 H 169 H 145 H (60-115) mg/dL Coronavirus (PCR) (Negative) Influenza Type A (PCR) (Negative) Influenza Type B (PCR) (Negative) RSV RNA Qual (PCR) (Negative) 01/10/20 01/10/20 Range/Units 07:17 11:23 Creatinine (0.5-1.4) mg/dL Estim Creat Clear Calc Estimated GFR POC Glucose 148 H 174 H (60-115) mg/dL Coronavirus (PCR) (Negative) Influenza Type A (PCR) (Negative) Influenza Type B (PCR) (Negative) RSV RNA Qual (PCR) (Negative) <Jeffry oH MD - Last Filed: 01/28/20 20:30> Discharge Plan Discharge Clinical Impression: Fall, Bilateral hip pain <BRIAN Matta - Last Filed: 01/08/20 17:17> Patient Disposition: Xfer SNF <BRIAN Matta - Last Filed: 01/08/20 17:17> Instructions: Fall Prevention (ED) <BRIAN Matta - Last Filed: 01/08/20 17:17> Prescriptions: No [facility] quetiapine 200 mg tablet 200 mg PO BEDTIME 30 Days Qty: 30 RF: 0 sulfamethoxazole-trimethoprim [Bactrim DS] 800-160 mg tablet 1 tab PO BID 14 Days Qty: 28 RF: 0 insulin aspart U-100 [Novolog Flexpen U-100 Insulin] 100 unit/mL (3 mL) insulin pen See Protocol unit subcut DIRECTED RF: 0 doxycycline hyclate 100 mg Tablet 100 mg PO BID Qty: 36 RF: 0 doxycycline hyclate 100 mg capsule 100 mg PO BID Qty: 20 RF: 0 cefixime 400 mg capsule 400 mg PO DAILY 10 Days Qty: 10 RF: 0 clotrimazole [Lotrimin AF (clotrimazole)] 1 % cream 1 appl topical TID Qty: 28.4 RF: 0 (DME) blood sugar diagnostic Strip See Rx Instructions strip .ROUTE .MEDSUPPLY Qty: 10 RF: 0 metformin 850 mg tablet 850 mg PO BIDWM RF: 0 apixaban 5 mg tablet 5 mg PO BID RF: 0 paroxetine HCl 20 mg tablet 20 mg PO QAM RF: 0 (DME) lancets Misc See Rx Instructions ea .ROUTE .MEDSUPPLY Qty: 100 RF: 0 carvedilol 6.25 mg tablet 6.25 mg PO BID RF: 0 memantine 5 mg tablet 5 mg PO BID RF: 0 (DME) blood-glucose meter Misc See Rx Instructions ea .ROUTE BID Qty: 1 RF: 0 insulin glargine 100 unit/mL (3 mL) insulin pen 15 unit subcut BEDTIME RF: 0 <BRIAN Matta - Last Filed: 01/08/20 17:17> Interventions: ED Discharge Assessment Last Done: 01/10/20 18:28 <BRIAN Matta - Last Filed: 01/08/20 17:17> Discharge Date/Time: 01/10/20 18:32 <BRIAN Matta - Last Filed: 01/08/20 17:17>
[2020-01-08 15:43] VITALS: BP 116/66; PULSE 94; RESP 18; TEMP 36.7; O2SAT 96
--- NOTE | 2020-01-08 15:44 | PC.NURSE ---
pt report taken from delgado flores. pt sitting in bed in hallway with family member. pt reports no pain. vitals wnl. pendinig ct scan
--- NOTE | 2020-01-08 18:01 | PC.NURSE ---
PT INCONTINENT OF URINE AND STOOL CHANGED AND [facility]. PER AT BEDSIDE PT HAS TESTICULAR RASH AND HAS ANTIBIOTIC CREAM PRESCRIBED. BUTTOX WAS RED AND INFLAMMED. PRESSURE CREAM APPLIED TO BOTTOM. PT MOVED TO 22 H DUE TO PATIENT BEING HIGH FALL RISK. PT IS DEMENTED AT BASELINE. PLAN FOR PT/OT IN AM.
[2020-01-08 18:02] VITALS: BP 127/67; PULSE 87; RESP 18; TEMP 36.5; O2SAT 97
--- NOTE | 2020-01-08 19:06 | PC.NURSE ---
pt given dinner tray. family member left.
[2020-01-08] MEDS: Acetaminophen 325 MG TABLET 650 MG PO (19:38)
[2020-01-08] MEDS: Lidocaine 4 % Patch ADH..PATCH 1 PATCH TRANSDERMA (19:38)
--- NOTE | 2020-01-08 19:44 | PC.NURSE ---
PATIENT FREQUENTLY CRAWLING OUT OF BED. FINALLY PATIENT STATING HE HAS PAIN DOWN ALL RIGHT SIDE. SPOKE WITH ZAIRA TORRES. PATIENT MEDICATED WITH TYLENOL AND LIDOCAINE PATCH. UNABLE TO PROVIDE A NUMBER ON PAIN SCALE.
[2020-01-08 20:50] VITALS: RESP 20
--- NOTE | 2020-01-08 20:50 | PC.NURSE ---
REPOSITIONED IN BED. ATTEMPTING TO GET OUT OF BED. LINENS CHANGED DUE TO URINE INCONTINENCE. ASKING WHERE ALL HIS FURNITURE WENT.
[2020-01-08 22:00] VITALS: RESP 16
[2020-01-08] MEDS: QUEtiapine Fumarate 50 MG TABLET PO (23:15)
[2020-01-09] VITALS (8 sets, daily range): BP systolic 119–153; BP diastolic 55–68; PULSE 58–88; RESP 14–16; TEMP 36.5–37.1; O2SAT 97–98
--- NOTE | 2020-01-09 | XR_ITS ---
EXAMINATION: XR CHEST CLINICAL INFORMATION: Cough COMPARISON: 12/18/2019 TECHNIQUE: Frontal view of the chest was obtained. FINDINGS: Lung volumes are symmetric. No focal consolidation is seen. There is suggestion of mild central peribronchial thickening. No evidence of pneumothorax, significant pleural effusion, or overt pulmonary edema. The cardiomediastinal contour is unremarkable. No acute osseous findings are seen. XR/XR chest 1V IMPRESSION: Suggestion of mild central peribronchial thickening which can be seen with acute or chronic bronchitis.
[2020-01-09 01:08] LABS: Influenza A PCR NEGATIVE (Negative); Influenza B PCR NEGATIVE (Negative); Resp Syncy Virus RNA Qual PCR NEGATIVE (Negative); SARS COV2 PCR INHOUSE NEGATIVE (Negative)
[2020-01-09 07:07] LABS: Glucose, Whole Blood 231 mg/dL (60-115)
[2020-01-09] MEDS: Insulin Lispro 100 UNIT/ML 3 ML VIAL SUBCUT ×3 (07:07→17:59)
[2020-01-09] MEDS: metFORMIN HCl 850 MG TABLET PO ×2 (07:17→18:07)
[2020-01-09] MEDS: Apixaban 5 MG TABLET PO ×2 (09:53→21:13)
[2020-01-09] MEDS: carvediloL 6.25 MG TABLET PO (09:54)
[2020-01-09] MEDS: PARoxetine HCL 20 MG TABLET PO (09:55)
[2020-01-09] MEDS: Memantine HCl 5 MG TABLET PO ×2 (09:55→21:13)
[2020-01-09 10:17] LABS: Creatinine Clr Calc Pharmacy 67.1; Estimated Glomerular Filt Rate > 60
--- NOTE | 2020-01-09 11:29 | MHC.CM.ED ---
Received case management consult overnight. Patient came to ER due to a fall and weakness. Work up essentially negative. Physical therapy eval completed. half-way care is recommended. Patient has a history of dementia. Spoke with patient's , Ruthie via telephone. Patient is active with [facility] and [facility]. Ruthie is not interested in senior living care but is requesting short term care. Patient has been to [facility] in the past. Ruthie doesn't want patient to return there. Her SNF choices are: 1)[facility] 2)[facility] and 3) [facility]. Referral made via allscripts. Continue to monitor for d/c needs.
[2020-01-09 11:39] LABS: Glucose, Whole Blood 168 mg/dL (60-115)
--- NOTE | 2020-01-09 14:06 | MHC.CM.ED ---
[facility] can only offer a bed. However the [facility] can. Ruthie doesn't want patient to return to [facility]. [facility] [place] not have a bed to offer. Due to the time of day, [facility] Continue to monitor for d/c needs.
--- NOTE | 2020-01-09 14:58 | MHC.CM.ED ---
[facility] WONT' BE ABLE TO OFFER A BED TODAY, BUT POSSIBLY WILL BE ABLE TO TOMORROW. [facility] IS ABLE TO OFFER A BED TODAY. [facility] IS REQUESTING PATIENT GO TO [facility] TOMORROW. ANTICIPATE PATIENT WILL REMAIN IN ER OVERNIGHT. CONTINUE TO MONITOR FOR D/C NEEDS.
[2020-01-09 16:55] LABS: Glucose, Whole Blood 169 mg/dL (60-115)
[2020-01-09 21:08] LABS: Glucose, Whole Blood 145 mg/dL (60-115)
[2020-01-09] MEDS: Insulin Glargine,Hum.rec.anlog 100 UNIT/ML 10 ML VIAL 15 UNIT SUBCUT (21:13)
[2020-01-09] MEDS: QUEtiapine Fumarate 50 MG TABLET PO (21:13)
--- NOTE | 2020-01-09 22:06 | PC.NURSE ---
PATIENT SLEEPING AT THIS TIME, DID NOT DISTURB. RESPIRATIONS EVEN & UNLABORED. NO ACUTE DISTRESS NOTED AT THIS TIME. WILL CONTINUE TO MONITOR.
[2020-01-10] VITALS: RESP 15
[2020-01-10 02:00] VITALS: PULSE 16
[2020-01-10 04:00] VITALS: RESP 14
--- NOTE | 2020-01-10 05:51 | PC.NURSE ---
Bed linen and flakita changed
[2020-01-10 06:00] VITALS: BP 134/61; PULSE 74; RESP 18; TEMP 36.8; O2SAT 96
[2020-01-10 07:20] LABS: Glucose, Whole Blood 148 mg/dL (60-115)
--- NOTE | 2020-01-10 07:35 | PC.NURSE ---
report taken from evangelista flores pt resting in stretcher, alert to verbal stimuli, nad. poc glucose 148. no coverage indicated at this time. pt given breakfast, eating w assistance, tolerating small amounts of oatmeal with sips of water in between, tolerating well, no cough or gag noted. awaiting pt/cm eval.
[2020-01-10 08:59] VITALS: PULSE 74
--- NOTE | 2020-01-10 09:00 | PC.NURSE ---
PT AWOKEN FROM [facility] FOR 0900 MEDS. PT STS HE DOES NOT WANT TO TAKE THE MEDS, I HAVE ENOUGH MEDS IN ME . PT EDUCATED ABOUT IMPORTANCE OF CARDIAC MEDS.
--- NOTE | 2020-01-10 10:01 | MHC.CM.PN ---
Patient remains in ER. Clinical updates sent to [facility] via [employer]. Spoke with patient's , Ruthie. Explained clinical updates have been sent and am waiting for the final decision if they can offer a bed. Ruthie verbalized understanding. Continue to monitor for d/c needs.
[2020-01-10 11:26] LABS: Glucose, Whole Blood 174 mg/dL (60-115)
--- NOTE | 2020-01-10 13:29 | PC.NURSE ---
pt given lunch. pt requesting to eat on his own sts i can do it . this rn close by to bedside to watch pt while eating, pt eating in slow, small bites. tolerating po w/o issue.
[2020-01-10] MEDS: Insulin Lispro 100 UNIT/ML 3 ML VIAL SUBCUT (13:33)
--- NOTE | 2020-01-10 14:21 | PC.NURSE ---
pt ate all of lunch, tolerating po w/o issue.
--- NOTE | 2020-01-10 16:05 | MHC.CM.ED ---
[facility] does not feel they can safely offer a bed because patient has been trying to get out of bed. [facility] is able to offer a bed. Spoke with Ruthie via telephone. Ruthie agreeable to transfer to [facility]. T/W will contact Ruthie when we have a transfer time. Continue to monitor for d/c needs.
--- NOTE | 2020-01-10 16:23 | MHC.CM.ED ---
Per Tabitha at [facility], patient can leave ER at 6pm. [facility] B[facility] booked. Med nec with chart. Patient, Ruthie, Denise Integr[employer] Consultant and Thierry GALARZA aware. Continue to monitor for d/c needs.
== END 2020-01-10 18:32 | disposition skilled nursing facility (03) ==
PROVIDERS: Nurse Practitioner Family; Emergency Provider Emergency Medicine Emergency Medical Services; PCP Nurse Practitioner Family
DX: M25.552 Pain in left hip (principal); M25.551 Pain in right hip; I25.10 Atherosclerotic heart disease of native coronary artery without angina pectoris; Z79.01 Long term (current) use of anticoagulants; Z79.899 Other long term (current) drug therapy
CPT/HCPCS: 0241U; 71045; 72192; 73502; 82565; 82947; 97162; 99285

== ENCOUNTER 2020-01-13 17:12 | Emergency (ER) | payer MEDICARE, MEDICAID, SELFPAY ==
--- NOTE | 2020-01-13 17:32 | CT_ITS ---
EXAMINATIONS: CT HEAD WITHOUT CONTRAST AND CT CERVICAL SPINE WITHOUT CONTRAST CLINICAL INFORMATION: Trauma. Pain. COMPARISON: November 27, 2019. TECHNIQUE: Contiguous helical images of the brain were obtained without IV contrast. Contiguous helical images of the cervical spine were obtained without IV contrast. Multiplanar reconstructions were performed. DLP: 1001 mGy-cm. FINDINGS: There are no pathologic extra-axial fluid collections. The lateral, third, fourth ventricles are prominent, though stable, age-appropriate and concordant with the appearance of the sulci. There is no evidence for acute intraparenchymal hemorrhage or infarct. There is mild periventricular low-attenuation indicative of small vessel disease. There is neither mass nor mass effect. There is no shift of midline structures. The paranasal sinuses and mastoid air cells are clear. There are no osseous lesions. The cervical vertebra are in normal alignment. There is disc height loss at C5/C6. Disc heights and vertebral heights are otherwise well-preserved. There are no fractures. There is no prevertebral soft tissue swelling. There is no cervical lymphadenopathy. There are mild manifestations of emphysema within the right apex. The visualized lung apices are otherwise clear. CT/CT cervical spine wo con IMPRESSION: No evidence for acute intracranial injury. No evidence for acute injury to the cervical spine. Mild disc height loss at C5/C6. Automated exposure control (Care Dose) Adjustment of the mA and/or kv according to patient size (this includes techniques or standardized protocols for targeted exams where dose is matched to indication / reason for exam; i.e. extremities or head).
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
[2020-01-13 17:36] VITALS: BP 116/52; PULSE 90; RESP 14; TEMP 36.5; O2SAT 98; BMI 21.2
--- NOTE | 2020-01-13 19:41 | PC.NURSE ---
to be called for discharge home, .
--- NOTE | 2020-01-13 20:12 | PC.NURSE ---
Report taken from Christiane, in waiting room to pick/up pt. Pt assisted into wheelchair, provided with DC paperwork.
== END 2020-01-13 20:33 | disposition other institution (70) ==
PROVIDERS: Emergency Provider Emergency Medicine; PCP Nurse Practitioner Family
DX: Z03.89 Encounter for observation for other suspected diseases and conditions ruled out (principal); Z91.81 History of falling; E11.9 Type 2 diabetes mellitus without complications; F03.90 Unspecified dementia, unspecified severity, without behavioral disturbance, psychotic disturbance, mood disturbance, and anxiety; Z85.51 Personal history of malignant neoplasm of bladder; Z86.711 Personal history of pulmonary embolism
CPT/HCPCS: 70450; 72125; 99283; 99284

== ENCOUNTER 2020-01-27 16:15 | Emergency (ER) | payer MEDICARE, MEDICAID, SELFPAY ==
[2020-01-27 16:35] VITALS: BP 118/66; BP 119/64; PULSE 86; PULSE 88; RESP 17; TEMP 37; O2SAT 96; O2SAT 99; BMI 23.1
--- NOTE | 2020-01-27 16:50 | XR_ITS ---
EXAMINATION: XR CHEST CLINICAL INFORMATION: Congestion COMPARISON: 01/09/2020 TECHNIQUE: Frontal view of the chest was obtained. FINDINGS: Similar appearance of mild coarse interstitial opacity. No focal consolidation. No pleural effusion or pneumothorax. Normal heart size. Tortuous aorta. Degenerative changes of the bilateral shoulders. XR/XR chest 1V IMPRESSION: Similar appearance of mild coarse interstitial opacity. This can be seen acutely with bronchiolitis or interstitial pneumonitis, chronically with chronic bronchitis or reactive airways disease.
--- NOTE | 2020-01-27 16:51 | US_ITS ---
EXAMINATION: US SCROTUM CLINICAL INFORMATION: Assess for abscess of right scrotum. COMPARISON: Directly compared to the 12/24/2019 study TECHNIQUE: A sonogram of the scrotum was performed assessing chandler-scale appearance and color Doppler flow. Spectral Doppler analysis of the arterial and venous flow were performed in the testes bilaterally. FINDINGS: Again the examination is markedly abnormal. There is diffuse swelling of the overlying scrotal skin. RIGHT: Right testicle measures 3.6 x 2.2 x 2.0 cm, volume 8.3 mL. No focal testicular parenchymal lesions are visualized. Spectral Doppler analysis of the arterial and venous flow is diffusely increased in the right testis. Right epididymal head is normal in size. No right hydrocele or varicocele is seen. Right epididymal Doppler flow is diffusely increased. Tiny calcification in the epididymal tail cyst incidentally noted. LEFT: Left testicle measures 2.9 x 2.1 x 2.4 cm, volume 7.8 mL. No focal testicular parenchymal lesions are visualized. Spectral Doppler analysis of the arterial and venous flow is significant increased in the left testis. Left epididymal head is normal in size. No left hydrocele or varicocele is seen. Left epididymal Doppler flow is significant increased. US/US scrotum IMPRESSION: Diffuse skin thickening with diffusely increased left greater than right Doppler flow to the bilateral epididymides to lesser extent the bilateral testicles. Overall the appearance is concerning for sequela of bilateral epididymal orchitis. The complex hydrocele that was seen on the prior study is less apparent today
--- NOTE | 2020-01-27 16:54 | ED.GENADULT ---
HPI - General Adult General Chief complaint: Wound/Laceration Stated complaint: CHEST CONGESTION WHEN SLEEPING,?UTI Time Seen by Provider: 01/27/20 16:43 Source: family Mode of arrival: ambulatory Limitations: no limitations History of Present Illness HPI narrative: Patient comes to emergency room, brought by his . According to the she suspects that patient may have a UTI and complaining of congestion at bedtime when the patient is sleeping. Patient states he feels well, only complaining of pain in the right side of his scrotum. Per patient's medications, he is already on doxycycline. Patient has history of advanced dementia, unable to give reliable history MD complaint: Congestion, cellulitis Related Data Home Medications Medication Instructions Recorded Confirmed apixaban 5 mg tablet 5 mg PO BID 11/10/19 01/19/20 blood sugar diagnostic #10 ea 11/10/19 01/19/20 blood-glucose meter #1 ea 11/10/19 01/19/20 carvedilol 6.25 mg tablet 6.25 mg PO BID 11/10/19 01/19/20 insulin glargine 100 unit/mL (3 15 unit SUBCUT BEDTIME 11/10/19 01/19/20 mL) subcutaneous pen lancets #100 ea 11/10/19 01/19/20 memantine 5 mg tablet 5 mg PO BID 11/10/19 01/19/20 metformin 850 mg tablet 850 mg PO BIDWM 11/10/19 01/19/20 paroxetine HCl 20 mg tablet 20 mg PO QAM 11/10/19 01/19/20 insulin aspart U-100 [Novolog See Protocol SUBCUT DIRECTED 12/27/19 01/08/20 Flexpen U-100 Insulin] Previous Rx's Medication Instructions Recorded doxycycline hyclate 100 mg PO BID #36 tab 12/29/19 quetiapine 200 mg tablet 200 mg PO BEDTIME 30 Days #30 tab 01/24/20 cefixime 400 mg PO DAILY 10 Days #10 cap 01/27/20 clotrimazole [Lotrimin AF 1 appl TOPICAL TID #28.4 g 01/27/20 (clotrimazole)] doxycycline hyclate 100 mg PO BID #20 cap 01/27/20 sulfamethoxazole 800 1 tab PO BID 14 Days #28 tab 01/27/20 mg-trimethoprim 160 mg tablet Allergies Allergy/AdvReac Type Severity Reaction Status Date / Time ibuprofen [IBUPROFEN] Allergy Unknown HIVES Verified 01/19/20 11:38 Review of Systems Review of Systems: Constitutional : No Weight loss, No Fever, No Chills, No Night Sweats, No Fatigue, No Malaise ENT/Mouth : No Hearing loss, No Ear Pain, No Nasal Congestion, No Sinus Pain, No Hoarseness, No sore throat, No Rhinorrhea, No Swallowing Difficulty Eyes: No Eye Pain, No Swelling, No Redness, No Foreign Body, No Discharge, No Vision Changes Cardiovascular : No Chest Pain, No SOB, No Dyspnea on Exertion, No Orthopnea, No Edema, No Palpitations Respiratory : No Cough, No Sputum, No Wheezing, No Smoke Exposure, No Dyspnea, complaining that the patient has nighttime congestion Gastrointestinal : No Nausea, No Vomiting, No Diarrhea, No Constipation, No abdominal Pain, No Hematochezia, No Melena Genitourinary :No Dysuria, No Urinary Frequency, No Hematuria, Chronic Urinary Incontinence, No Urgency, No Flank Pain, cellulitis in right side of the scrotum Musculoskeletal : No joint pain, No Myalgias, No Joint Swelling Skin : No Skin Lesions, No rash, see above in Neuro : No Weakness, No Numbness, No Paresthesias, No Loss of Consciousness, No Dizziness, No Headache Psych : No Anxiety/Panic, No Depression, No SI/HI/AH/VH, No Social Issues, Heme/Lymph: No Bruising, No Bleeding,No Lymphadenopathy Endocrine : No Polyuria, No Polydipsia, No Temperature Intolerance [facility] Past Medical History Medical History Bladder cancer CAD (coronary artery disease) Dementia Diabetes Dysphagia Neurogenic bladder NSTEMI (non-ST elevated myocardial infarction) Pulmonary embolism Surgical History Suprapubic catheter Family History Family History Father Unknown family medical history Mother Unknown family medical history Social History Social History Household Members: Spouse Housing: Unknown / Unable to assess Alcohol intake: unknown Smoking Status: Unknown if ever smoked Advance Directives: No Advance Directives Information Provided: Yes service: No Current occupational status: disabled Physical Exam Vital Signs: Vital Signs: Last Vital Signs Temp 98.1 F 01/27/20 20:00 Pulse 93 01/27/20 20:00 Resp 16 01/27/20 20:00 BP 125/68 01/27/20 20:00 Pulse Ox 95 01/27/20 20:00 Body Mass Index 23.1 Appearance: Alert. Oriented X1. No acute distress. Otherwise well-appearing Eyes: Pupils equal, round and reactive to light. ENT: Pharynx normal. Neck: Normal inspection. Neck supple. No lymph nodes noted. No crepitus CVS: Normal heart rate and rhythm. Pulses normal. Normal S1 and S2 Respiratory: No respiratory distress. Breath sounds normal. No Wheezing. No rales Abdomen: Soft and nontender. No rigidity. No distention. good BS x4 Skin: Skin warm and dry. Patient has candidiasis been scrotum, perineum and inner thighs, there is a small 3 mm opening over the right testicle, at this time no drainage observed Extremities: No lower extremity edema. No lower extremity edema. No Lacerations. No Rash Neuro: Oriented X 3. No motor deficit. No sensory deficit. Moving all extermities. No slurred speech. Course Course Course Narrative: Patient's ultrasound is at baseline abnormal, showing abnormal thickened skin. At this time, no drainable abscess visualized. Patient has not been coughing, patient is at baseline talking, seems comfortable. Patient will be prescribed an additional prescription of doxycycline, the patient's does not remember how long the patient has been taking doxycycline, estimates it has been a few days. Additionally, patient will be started on cefixime, which will treat cellulitis along with the mild UTI the patient has Medical Decision Making Lab Data Labs: Lab Results 01/27/20 01/27/20 Range/Units 18:44 18:44 Urine Color YELLOW Urine Appearance HAZY Urine pH 6.0 (5.0-8.0) Ur Specific [place] 1.015 (1.005-1.025) Urine Protein NEG (NEG-TRACE) MG/DL Urine Glucose (UA) NEG (NEG) MG/DL Urine Ketones NEG (NEG) MG/DL Urine Blood TRACE (NEG) Urine Nitrite NEG (NEG) Ur Leukocyte Esterase 3+ H (NEG) Urine RBC 0-2 (0) /HPF Urine WBC TNTC H (0-4) /HPF Ur Squamous Epith Cells TRACE /LPF Urine Bacteria TRACE /LPF Urine Yeast 2+ /HPF Urine Opiates Screen Not Detected (Not Detect) Ur Barbiturates Screen Not Detected (Not Detect) Ur Phencyclidine Scrn Not Detected (Not Detect) Ur Amphetamines Screen Not Detected (Not Detect) U Benzodiazepines Scrn Not Detected (Not Detect) Urine Cocaine Screen Not Detected (Not Detect) U Marijuana (THC) Screen Not Detected (Not Detect) Imaging Data Chest x-ray: Radiologist's impression: FINDINGS: Similar appearance of mild coarse interstitial opacity. No focal consolidation. No pleural effusion or pneumothorax. Normal heart size. Tortuous aorta. Degenerative changes of the bilateral shoulders. XR/XR chest 1V IMPRESSION: Similar appearance of mild coarse interstitial opacity. This can be seen acutely with bronchiolitis or interstitial pneumonitis, chronically with chronic bronchitis or reactive airways disease. Scrotal ultrasound: Radiologist's impression: Again the examination is markedly abnormal. There is diffuse swelling of the overlying scrotal skin. RIGHT: Right testicle measures 3.6 x 2.2 x 2.0 cm, volume 8.3 mL. No focal testicular parenchymal lesions are visualized. Spectral Doppler analysis of the arterial and venous flow is diffusely increased in the right testis. Right epididymal head is normal in size. No right hydrocele or varicocele is seen. Right epididymal Doppler flow is diffusely increased. Tiny calcification in the epididymal tail cyst incidentally noted. LEFT: Left testicle measures 2.9 x 2.1 x 2.4 cm, volume 7.8 mL. No focal testicular parenchymal lesions are visualized. Spectral Doppler analysis of the arterial and venous flow is significant increased in the left testis. Left epididymal head is normal in size. No left hydrocele or varicocele is seen. Left epididymal Doppler flow is significant increased. US/US scrotum IMPRESSION: Diffuse skin thickening with diffusely increased left greater than right Doppler flow to the bilateral epididymides to lesser extent the bilateral testicles. Overall the appearance is concerning for sequela of bilateral epididymal orchitis. The complex hydrocele that was seen on the prior study is less apparent today Discharge Plan Discharge Clinical Impression: Chronic UTI, Chest congestion, Candidiasis Patient Disposition: Home, Self-Care Instructions: Urinary Tract Infection in Men (ED) Prescriptions: New doxycycline hyclate 100 mg capsule 100 mg PO BID Qty: 20 RF: 0 cefixime 400 mg capsule 400 mg PO DAILY 10 Days Qty: 10 RF: 0 clotrimazole [Lotrimin AF (clotrimazole)] 1 % cream 1 appl topical TID Qty: 28.4 RF: 0 No Action quetiapine 200 mg tablet 200 mg PO BEDTIME 30 Days Qty: 30 RF: 0 sulfamethoxazole-trimethoprim [Bactrim DS] 800-160 mg tablet 1 tab PO BID 14 Days Qty: 28 RF: 0 insulin aspart U-100 [Novolog Flexpen U-100 Insulin] 100 unit/mL (3 mL) insulin pen See Protocol unit subcut DIRECTED RF: 0 doxycycline hyclate 100 mg Tablet 100 mg PO BID Qty: 36 RF: 0 (DME) blood sugar diagnostic Strip See Rx Instructions strip .ROUTE .MEDSUPPLY Qty: 10 RF: 0 metformin 850 mg tablet 850 mg PO BIDWM RF: 0 apixaban 5 mg tablet 5 mg PO BID RF: 0 paroxetine HCl 20 mg tablet 20 mg PO QAM RF: 0 (DME) lancets Misc See Rx Instructions ea .ROUTE .MEDSUPPLY Qty: 100 RF: 0 carvedilol 6.25 mg tablet 6.25 mg PO BID RF: 0 memantine 5 mg tablet 5 mg PO BID RF: 0 (DME) blood-glucose meter Misc See Rx Instructions ea .ROUTE BID Qty: 1 RF: 0 insulin glargine 100 unit/mL (3 mL) insulin pen 15 unit subcut BEDTIME RF: 0
[2020-01-27 18:00] VITALS: BP 101/71; PULSE 94; RESP 16; TEMP 36.6; O2SAT 98
[2020-01-27 19:27] LABS: Amphetamine Screen Urine Not Detected (Not Detect); Barbiturates, Urine Not Detected (Not Detect); Benzodiazepines Screen Urine Not Detected (Not Detect); Cannabinoid Screen Urine Not Detected (Not Detect); Cocaine Screen Urine Not Detected (Not Detect); Opiate Screen Urine Not Detected (Not Detect); Phencyclidine Screen Urine Not Detected (Not Detect)
[2020-01-27 19:46] LABS: Glucose Urine UA NEG (NEG); Leukocyte Esterase Urine 3+ (NEG); Nitrite Urine NEG (NEG); Specific Gravity - Urine 1.015 (1.005-1.025); Urine Blood TRACE (NEG); Urine Ketones NEG (NEG); Urine Protein NEG (NEG-TRACE)
[2020-01-27 19:50] LABS: Appearance Urine HAZY; Color Urine YELLOW
[2020-01-27 19:55] LABS: Bacteria Urine TRACE /LPF; RBC Urine 0-2 /HPF (0); Squamous Epithelial Cell Urine TRACE /LPF; WBC Urine TNTC /HPF (0-4)
[2020-01-27 20:00] VITALS: BP 125/68; PULSE 93; RESP 16; TEMP 36.7; O2SAT 95
[2020-01-27] MEDS: cephALEXin 500 MG CAPSULE PO (21:07)
== END 2020-01-27 21:15 | disposition home or self-care (01) ==
PROVIDERS: Emergency Provider Emergency Medicine; PCP Nurse Practitioner Family
DX: N39.0 Urinary tract infection, site not specified (principal); B37.9 Candidiasis, unspecified; R09.89 Other specified symptoms and signs involving the circulatory and respiratory systems; I25.10 Atherosclerotic heart disease of native coronary artery without angina pectoris; Z20.828 Contact with and (suspected) exposure to other viral communicable diseases; Z79.899 Other long term (current) drug therapy
CPT/HCPCS: 71045; 76870; 80307; 81001; 99283; 99284; U0003

== ENCOUNTER → 2020-01-30 10:25 | Outpatient (BNVA) | payer MEDICARE, MEDICAID, SELFPAY | PROVIDERS: PCP Nurse Practitioner Family; Visit Provider Urology | DX: N45.1 Epididymitis (principal); R33.9 Retention of urine, unspecified; N31.9 Neuromuscular dysfunction of bladder, unspecified | CPT/HCPCS: 99212 ==

== ENCOUNTER 2020-02-04 19:05 | Emergency (ER) | payer MEDICARE, MEDICAID, SELFPAY ==
[2020-02-04 19:12] VITALS: BP 130/68; PULSE 95; RESP 16; TEMP 36.6; O2SAT 98; BMI 23.8
--- NOTE | 2020-02-04 19:28 | CT_ITS ---
EXAMINATION: CT HEAD WITHOUT CONTRAST CT CERVICAL SPINE WITHOUT CONTRAST CLINICAL INFORMATION: Fall. COMPARISON: CT head CT cervical spine 01/13/2020 TECHNIQUE: Imaging was performed from the skull base to vertex without intravenous administration of contrast. In addition, helical noncontrast CT imaging was acquired through the cervical spine and source images were reviewed along with axial reconstructions and sagittal and coronal MPRs. [This CT examination was performed using dose optimization techniques as appropriate, variously including the following: *Automated exposure control *Adjustment of mA and/or kV according to patient size (this includes techniques or standardized protocols for targeted exams where dose is matched to indication/reason for exam; i.e. extremities or head) *Use of iterative reconstruction technique] DLP: 1071 mGy-cm FINDINGS: HEAD: No intracranial mass, hemorrhage, or midline shift is visualized. There is atrophy with prominence of the ventricles and the sulci and hypodensity of the periventricular white matter due to chronic small vessel ischemic disease. There are vascular calcifications of the internal carotid arteries bilaterally. No extra-axial collections are identified. The paranasal sinuses and mastoid air cells are well aerated. CERVICAL SPINE: There is no evidence of acute cervical spine fracture. Vertebral bodies remain normal in height. Cervical vertebrae have normal alignment. There is multilevel degenerative spondylosis of the cervical spine with disc height narrowing and endplate spurs and facet joint arthrosis No pre- or paravertebral soft tissue abnormality is identified. There is marked emphysematous changes of lung. CT/CT cervical spine wo con IMPRESSION: 1. No acute intracranial pathology. 2. No CT evidence of acute cervical spine fracture or traumatic subluxation
--- NOTE | 2020-02-04 19:29 | ECG_ITS ---
Test Reason : unwitnessed fall Blood Pressure : / mmHG Vent. Rate : 093 BPM Atrial Rate : 279 BPM P-R Int : 000 ms QRS Dur : 074 ms QT Int : 366 ms P-R-T Axes : 066 -07 036 degrees QTc Int : 455 ms Poor data quality Sinus rhythm Nonspecific ST and T wave abnormality Abnormal ECG When compared with ECG of 18-DEC-2019 09:50, No significant changes seen Referred By: Ivan Durán Electronically Signed By:GRICELDA CHASE
--- NOTE | 2020-02-04 19:30 | ED.FALL ---
HPI - Fall General Chief Complaint: Fall Stated Complaint: falls ams Time Seen by Provider: 02/04/20 19:13 Source: patient and RN notes reviewed Mode of arrival: ambulatory Limitations: no limitations History of Present Illness HPI Narrative: Patient presents to ED for fall. Patient has history of multiple falls. Patient has severe dementia and at baseline is only aware to self. Patient does not know why he is in the ER. As per EMS report patient fell and then called for lift assist and then she wented patient to be seen tonight in the ED for evaluation. Patient has no physical complaints. MD complaint: fall Related Data Home Medications Medication Instructions Recorded Confirmed apixaban 5 mg tablet 5 mg PO BID 11/10/19 01/19/20 blood sugar diagnostic #10 ea 11/10/19 01/19/20 blood-glucose meter #1 ea 11/10/19 01/19/20 carvedilol 6.25 mg tablet 6.25 mg PO BID 11/10/19 01/19/20 insulin glargine 100 unit/mL (3 15 unit SUBCUT BEDTIME 11/10/19 01/19/20 mL) subcutaneous pen lancets #100 ea 11/10/19 01/19/20 memantine 5 mg tablet 5 mg PO BID 11/10/19 01/19/20 metformin 850 mg tablet 850 mg PO BIDWM 11/10/19 01/19/20 paroxetine HCl 20 mg tablet 20 mg PO QAM 11/10/19 01/19/20 insulin aspart U-100 [Novolog See Protocol SUBCUT DIRECTED 12/27/19 01/08/20 Flexpen U-100 Insulin] Previous Rx's Medication Instructions Recorded doxycycline hyclate 100 mg PO BID #36 tab 12/29/19 quetiapine 200 mg tablet 200 mg PO BEDTIME 30 Days #30 tab 01/24/20 cefixime 400 mg PO DAILY 10 Days #10 cap 01/27/20 clotrimazole [Lotrimin AF 1 appl TOPICAL TID #28.4 g 01/27/20 (clotrimazole)] doxycycline hyclate 100 mg PO BID #20 cap 01/27/20 sulfamethoxazole 800 1 tab PO BID 14 Days #28 tab 01/27/20 mg-trimethoprim 160 mg tablet Allergies Allergy/AdvReac Type Severity Reaction Status Date / Time ibuprofen [IBUPROFEN] Allergy Unknown HIVES Verified 01/19/20 11:38 Review of Systems Review of Systems: Yes all other systems are reviewed and are negative and Unobtainable due to mental status (Patient has severe dementia but states no physical complaints.) Constitutional: Constitutional: Reports as per HPI and Reports no additional constitutional complaints [facility] Past Medical History Medical History Bladder cancer CAD (coronary artery disease) Dementia Diabetes Dysphagia Neurogenic bladder NSTEMI (non-ST elevated myocardial infarction) Pulmonary embolism Surgical History Suprapubic catheter Family History Family History Father Unknown family medical history Mother Unknown family medical history Social History Social History Household Members: Spouse Housing: Unknown / Unable to assess Alcohol intake: never Smoking Status: Never smoker Use of substances other than those prescribed or required for medical reasons: No Advance Directives: No Advance Directives Information Provided: No service: No Current occupational status: disabled Physical Exam Vital Signs: Vital Signs: Last Vital Signs Temp 98 F 02/04/20 21:45 Pulse 90 02/04/20 21:45 Resp 18 02/04/20 21:45 BP 114/60 02/04/20 21:45 Pulse Ox 98 02/04/20 21:45 Body Mass Index 23.8 Const: General: cooperative, healthy appearing, comfortable and no acute distress Orientation/consciousness: patient oriented x3 HENMT: Head: Yes normal to inspection and Yes No palpable skull fracture present Eyes: General: appearance normal, both eyes and all related structures Neck: Neck: Yes normal visual inspection and Yes full ROM Chest: Other: Negative for ecchymosis Chest palpation & inspection: normal inspection of the chest and normal palpation of entire chest wall Resp: Effort & Inspection: normal respiratory effort and able to speak in complete sentences Auscultation: clear to auscultation bilaterally Cardio: Jugular venous distension: no JVD Heart sounds: S1 normal heart sound present and S2 normal heart sound present GI: Inspection: Yes normal to inspection and No abdominal wall ecchymosis Palpation (GI): Soft to palpation, not firm, nontender, no guarding and not rigid : General: No CVA tenderness and Yes no CVA tenderness Back/Spine/Pelvis: Back: no CVA tenderness, No CVA tenderness and No back tenderness Skin: General skin exam: no rashes or lesions noted Neuro: General: patient oriented x3, gait normal and CN's II-XI intact bilaterally Cranial nerves: Yes CN's II-XII intact bilaterally Extrem: Other: Patient has complete range of motion of all extremities without any deficit. Negative for any ecchymosis or deformities of all extremities. Negative for any hip tenderness on palpation. Psych: Other: Demented Appearance: grossly normal Course Course Course Narrative: Patient will have labs and imaging due to dementia and being a poor historian Reevaluation(s) Reevaluation #1: Patient denies any distress and is at baseline mentally. Patient's troponin is negative. Patient had CT C-spine came back negative. Awaiting urine results. Most likely patient will be discharged. Time: 22:08 Reevaluation #2: Patient UA shows UTI. Patient will be discharged with p.o. antibiotics. Patient is not toxic appearing. Patient is not in SIRS. Time: 22:21 MDM - Fall MDM Narrative Medical decision making narrative: Fall. UTI Lab Data Result diagrams: 02/04/20 20:05 02/04/20 20:05 Labs: Lab Results 02/04/20 02/04/20 02/04/20 Range/Units 20:05 20:05 20:05 WBC 14.8 H (4.8-10.8) X10*3/uL RBC 3.82 L (4.60-5.80) X10*6/uL Hgb 11.6 L (14.0-18.0) g/dl Hct 34.5 L (42-52) % MCV 90.3 (80-98) fL MCH 30.4 (27.0-33.0) pg MCHC 33.6 (31.0-36.0) g/dl RDW 13.1 (11.0-16.0) % Plt Count 352 (160-400) X10*3/uL MPV 8.5 L (9.4-12.4) fL Immature Gran % (Auto) 0.8 H (0.0-0.4) % Neut % (Auto) 72.4 (45-73) % Lymph % (Auto) 18.2 L (20-40) % [place] % (Auto) 6.0 (2-11) % Eos % (Auto) 2.0 (0-4) % Baso % (Auto) 0.6 (0-2) % Lymph # (Auto) 2.7 (1.2-4.9) X10*3/uL [place] # (Auto) 0.9 (0.1-1.2) X10*3/uL Eos # (Auto) 0.3 (0.0-0.4) X10*3/uL Baso # (Auto) 0.1 (0.0-0.2) X10*3/uL Abs Immat Gran (auto) 0.12 H (0.00-0.03) X10*3/uL Absolute Neuts (auto) 10.7 H (2.0-8.3) X10*3/uL Absolute Nucleated RBC 0.000 (0.0-0.012) X10*3/uL Nucleated RBC % (auto) 0.0 (0.0-0.2) /100WBC PT 19.6 H (10.8-13.0) SEC INR 1.6 H (0.9-1.1) APTT 38.0 (24.1-38.0) SEC Sodium 133 L (135-145) mmol/L Potassium 4.5 (3.3-5.1) mmol/l Chloride 99 (96-108) mmol/L Carbon Dioxide 24 (22-29) mmol/L Anion Gap 15 (12-20) BUN 8 L (9-16) mg/dL Creatinine 0.88 (0.5-1.4) mg/dL Estim Creat Clear Calc 62.6 Estimated GFR > 60 Random Glucose 193 H (60-115) mg/dL Calcium 8.4 (8.4-10.2) mg/dL Total Bilirubin 0.3 (0.0-1.0) mg/dL AST 7 (5-37) U/L ALT 8 (0-40) U/L Alkaline Phosphatase 106 D (39-117) U/L Troponin I High Sens (<3.5-35.0) ng/L Total Protein 7.2 (6.5-8.0) g/dL Albumin 3.6 (3.5-5.0) g/dL Urine Color Urine Appearance Urine pH (5.0-8.0) Ur Specific [place] (1.005-1.025) Urine Protein (NEG-TRACE) MG/DL Urine Glucose (UA) (NEG) MG/DL Urine Ketones (NEG) MG/DL Urine Blood (NEG) Urine Nitrite (NEG) Ur Leukocyte Esterase (NEG) Urine RBC (0) /HPF Urine WBC (0-4) /HPF Ur Squamous Epith Cells /LPF Urine Bacteria /LPF Urine Mucus /LPF Urine Yeast /HPF 02/04/20 02/04/20 Range/Units 20:05 21:38 WBC (4.8-10.8) X10*3/uL RBC (4.60-5.80) X10*6/uL Hgb (14.0-18.0) g/dl Hct (42-52) % MCV (80-98) fL MCH (27.0-33.0) pg MCHC (31.0-36.0) g/dl RDW (11.0-16.0) % Plt Count (160-400) X10*3/uL MPV (9.4-12.4) fL Immature Gran % (Auto) (0.0-0.4) % Neut % (Auto) (45-73) % Lymph % (Auto) (20-40) % [place] % (Auto) (2-11) % Eos % (Auto) (0-4) % Baso % (Auto) (0-2) % Lymph # (Auto) (1.2-4.9) X10*3/uL [place] # (Auto) (0.1-1.2) X10*3/uL Eos # (Auto) (0.0-0.4) X10*3/uL Baso # (Auto) (0.0-0.2) X10*3/uL Abs Immat Gran (auto) (0.00-0.03) X10*3/uL Absolute Neuts (auto) (2.0-8.3) X10*3/uL Absolute Nucleated RBC (0.0-0.012) X10*3/uL Nucleated RBC % (auto) (0.0-0.2) /100WBC PT (10.8-13.0) SEC INR (0.9-1.1) APTT (24.1-38.0) SEC Sodium (135-145) mmol/L Potassium (3.3-5.1) mmol/l Chloride (96-108) mmol/L Carbon Dioxide (22-29) mmol/L Anion Gap (12-20) BUN (9-16) mg/dL Creatinine (0.5-1.4) mg/dL Estim Creat Clear Calc Estimated GFR Random Glucose (60-115) mg/dL Calcium (8.4-10.2) mg/dL Total Bilirubin (0.0-1.0) mg/dL AST (5-37) U/L ALT (0-40) U/L Alkaline Phosphatase (39-117) U/L Troponin I High Sens < 3.5 (<3.5-35.0) ng/L Total Protein (6.5-8.0) g/dL Albumin (3.5-5.0) g/dL Urine Color YELLOW Urine Appearance HAZY Urine pH 6.0 (5.0-8.0) Ur Specific [place] 1.020 (1.005-1.025) Urine Protein NEG (NEG-TRACE) MG/DL Urine Glucose (UA) 250 H (NEG) MG/DL Urine Ketones NEG (NEG) MG/DL Urine Blood 2+ H (NEG) Urine Nitrite NEG (NEG) Ur Leukocyte Esterase 3+ H (NEG) Urine RBC 15-29 H (0) /HPF Urine WBC 50-75 H (0-4) /HPF Ur Squamous Epith Cells 1+ /LPF Urine Bacteria 1+ /LPF Urine Mucus 1+ /LPF Urine Yeast 1+ /HPF ECG Data Interpretation: EKG states atrial flutter, but that is wrong. EKG reviewed with Dr. Kc and aggrees patient has p-waves with normal sinus and ekg reading for atrial flutter is wrong. Regular rate 93. QRS 74 QTC 455. Discharge Plan Discharge Clinical Impression: Fall, Acute UTI Patient Disposition: Home, Self-Care Instructions: Urinary Tract Infection in Men (ED), Fall Prevention (ED) Additional Instructions: Return to the ED immediately or dizziness, chest pain, shortness of breath, fever, chills, weakness, paralysis of extremities, slurred speech, facial droop, or any other concerning symptoms. Continue taking your cefixime as prescribed for UTI. FOllow up with PCP. Prescriptions: No Action quetiapine 200 mg tablet 200 mg PO BEDTIME 30 Days Qty: 30 RF: 0 sulfamethoxazole-trimethoprim [Bactrim DS] 800-160 mg tablet 1 tab PO BID 14 Days Qty: 28 RF: 0 insulin aspart U-100 [Novolog Flexpen U-100 Insulin] 100 unit/mL (3 mL) insulin pen See Protocol unit subcut DIRECTED RF: 0 doxycycline hyclate 100 mg Tablet 100 mg PO BID Qty: 36 RF: 0 doxycycline hyclate 100 mg capsule 100 mg PO BID Qty: 20 RF: 0 cefixime 400 mg capsule 400 mg PO DAILY 10 Days Qty: 10 RF: 0 clotrimazole [Lotrimin AF (clotrimazole)] 1 % cream 1 appl topical TID Qty: 28.4 RF: 0 (DME) blood sugar diagnostic Strip See Rx Instructions strip .ROUTE .MEDSUPPLY Qty: 10 RF: 0 metformin 850 mg tablet 850 mg PO BIDWM RF: 0 apixaban 5 mg tablet 5 mg PO BID RF: 0 paroxetine HCl 20 mg tablet 20 mg PO QAM RF: 0 (DME) lancets Misc See Rx Instructions ea .ROUTE .MEDSUPPLY Qty: 100 RF: 0 carvedilol 6.25 mg tablet 6.25 mg PO BID RF: 0 memantine 5 mg tablet 5 mg PO BID RF: 0 (DME) blood-glucose meter Misc See Rx Instructions ea .ROUTE BID Qty: 1 RF: 0 insulin glargine 100 unit/mL (3 mL) insulin pen 15 unit subcut BEDTIME RF: 0 Interventions: ED Discharge Assessment Last Done: 02/04/20 23:02 Discharge Date/Time: 02/04/20 23:03 Print Language: [place]ican
[2020-02-04 20:13] LABS: Basophils Absolute Auto 0.1 X10*3/uL (0.0-0.2); Basophils Percent Auto 0.6 % (0-2); Eosinophils Absolute Auto 0.3 X10*3/uL (0.0-0.4); Hematocrit 34.5 % (42-52); Hemoglobin 11.6 g/dl (14.0-18.0); Imm Gran Abs Auto 0.12 X10*3/uL (0.00-0.03); Imm Gran Pct Auto 0.8 % (0.0-0.4); Lymphocytes Absolute Auto 2.7 X10*3/uL (1.2-4.9); Lymphocytes Percent Auto 18.2 % (20-40); MANUAL DIFF FLAG NO; Mean Corpuscular HGB Conc 33.6 g/dl (31.0-36.0); Mean Corpuscular Hemoglobin 30.4 pg (27.0-33.0); Mean Corpuscular Volume 90.3 fL (80-98); Mean Platelet Volume 8.5 fL (9.4-12.4); Monocytes Absolute Auto 0.9 X10*3/uL (0.1-1.2); Neutrophils Absolute Auto 10.7 X10*3/uL (2.0-8.3); Neutrophils Percent Auto 72.4 % (45-73); Platelet Count 352 X10*3/uL (160-400); Red Blood Count 3.82 X10*6/uL (4.60-5.80); Red Cell Distribution Width 13.1 % (11.0-16.0); White Blood Count 14.8 X10*3/uL (4.8-10.8)
[2020-02-04 20:19] LABS: INTERNATIONAL NORM RATIO 1.6 (0.9-1.1); Prothrombin Time 19.6 SEC (10.8-13.0)
[2020-02-04 20:38] LABS: Troponin-I High Sensitivity < 3.5 ng/L (<3.5-35.0)
[2020-02-04 20:46] LABS: Alanine Aminotransferase 8 U/L (0-40); Albumin Level 3.6 g/dL (3.5-5.0); Alkaline Phosphatase 106 U/L (39-117); Anion Gap 15 (12-20); Aspartate Amino Transferase 7 U/L (5-37); Bilirubin Total 0.3 mg/dL (0.0-1.0); Blood Urea Nitrogen 8 mg/dL (9-16); Calcium 8.4 mg/dL (8.4-10.2); Carbon Dioxide 24 mmol/L (22-29); Chloride 99 mmol/L (96-108); Creatinine Clr Calc Pharmacy 62.6; Estimated Glomerular Filt Rate > 60; Glucose Random 193 mg/dL (60-115); Potassium 4.5 mmol/l (3.3-5.1); Sodium 133 mmol/L (135-145); Total Protein 7.2 g/dL (6.5-8.0)
[2020-02-04 21:45] VITALS: BP 114/60; PULSE 90; RESP 18; TEMP 36.6; O2SAT 98
[2020-02-04 21:55] LABS: Glucose Urine UA 250 MG/DL (NEG); Leukocyte Esterase Urine 3+ (NEG); Nitrite Urine NEG (NEG); Urine Blood 2+ (NEG); Urine Ketones NEG (NEG); Urine Protein NEG (NEG-TRACE)
[2020-02-04 22:09] LABS: Appearance Urine HAZY; Color Urine YELLOW
[2020-02-04 22:11] LABS: Bacteria Urine 1+ /LPF; Squamous Epithelial Cell Urine 1+ /LPF; WBC Urine 50-75 /HPF (0-4)
[2020-02-04 22:12] LABS: Mucus Urine 1+ /LPF
== END 2020-02-04 23:03 | disposition home or self-care (01) ==
PROVIDERS: Physician Assistant; Emergency Provider Student in an Organized Health Care Education/Training Program
DX: S09.90XA Unspecified injury of head, initial encounter (principal); N39.0 Urinary tract infection, site not specified; G44.309 Post-traumatic headache, unspecified, not intractable; M54.2 Cervicalgia; E11.9 Type 2 diabetes mellitus without complications; W01.0XXA Fall on same level from slipping, tripping and stumbling without subsequent striking against object, initial encounter; Y93.9 Activity, unspecified; Y92.9 Unspecified place or not applicable; Y99.9 Unspecified external cause status; Z91.81 History of falling; Z79.899 Other long term (current) drug therapy; Z79.4 Long term (current) use of insulin
CPT/HCPCS: 36415; 70450; 72125; 80053; 81001; 81003; 84484; 85025; 85610; 85730; 87086; 93005; 99284

== ENCOUNTER → 2020-02-06 13:04 | Outpatient (BNVA) | payer MEDICARE, MEDICAID, SELFPAY | PROVIDERS: PCP Nurse Practitioner Family; Visit Provider Urology | DX: B35.6 Tinea cruris (principal); N45.1 Epididymitis | CPT/HCPCS: 99212 ==

== ENCOUNTER 2020-02-12 15:07 | Emergency (ER) | payer MEDICARE, MEDICAID, SELFPAY ==
--- NOTE | 2020-02-12 16:29 | XR_ITS ---
EXAMINATION: XR CHEST CLINICAL INFORMATION: Weakness COMPARISON: Chest radiographs 01/27/2020, 01/09/2020, 2 view chest 10/28/2019 TECHNIQUE: Upright AP and lateral views of the chest are obtained. FINDINGS: The heart is normal in size. The vascularity is normal. There is a stent overlying the right heart. There is no lobar or segmental airspace consolidation or definite groundglass opacity. Some densities overlying the mid lung zones on frontal view correspond to skin fold artifacts. The costophrenic sulci are clear. The hilar and mediastinal contours and visualized bony structures are unremarkable. XR/XR chest 2V IMPRESSION: No acute intrathoracic disease.
--- NOTE | 2020-02-12 16:29 | ED.GENADULT ---
HPI - General Adult General Stated complaint: Weakness Time Seen by Provider: 02/12/20 16:29 Related Data Home Medications Medication Instructions Recorded Confirmed apixaban 5 mg tablet 5 mg PO BID 11/10/19 01/19/20 blood sugar diagnostic #10 ea 11/10/19 01/19/20 blood-glucose meter #1 ea 11/10/19 01/19/20 carvedilol 6.25 mg tablet 6.25 mg PO BID 11/10/19 01/19/20 insulin glargine 100 unit/mL (3 15 unit SUBCUT BEDTIME 11/10/19 01/19/20 mL) subcutaneous pen lancets #100 ea 11/10/19 01/19/20 memantine 5 mg tablet 5 mg PO BID 11/10/19 01/19/20 metformin 850 mg tablet 850 mg PO BIDWM 11/10/19 01/19/20 paroxetine HCl 20 mg tablet 20 mg PO QAM 11/10/19 01/19/20 insulin aspart U-100 [Novolog See Protocol SUBCUT DIRECTED 12/27/19 01/08/20 Flexpen U-100 Insulin] Previous Rx's Medication Instructions Recorded doxycycline hyclate 100 mg PO BID #36 tab 12/29/19 quetiapine 200 mg tablet 200 mg PO BEDTIME 30 Days #30 tab 01/24/20 cefixime 400 mg PO DAILY 10 Days #10 cap 01/27/20 clotrimazole [Lotrimin AF 1 appl TOPICAL TID #28.4 g 01/27/20 (clotrimazole)] doxycycline hyclate 100 mg PO BID #20 cap 01/27/20 sulfamethoxazole 800 1 tab PO BID 14 Days #28 tab 01/27/20 mg-trimethoprim 160 mg tablet amoxicillin 500 mg-potassium 1 tab PO Q8H 7 Days #21 tab 02/05/20 clavulanate 125 mg tablet Allergies Allergy/AdvReac Type Severity Reaction Status Date / Time ibuprofen [IBUPROFEN] Allergy Unknown HIVES Verified 01/19/20 11:38 FOR[facility]LY [facility] Past Medical History Medical History Bladder cancer CAD (coronary artery disease) Dementia Diabetes Dysphagia Neurogenic bladder NSTEMI (non-ST elevated myocardial infarction) Pulmonary embolism Surgical History Suprapubic catheter Family History Family History Father Unknown family medical history Mother Unknown family medical history Social History Social History Household Members: Spouse Housing: Unknown / Unable to assess Alcohol intake: never Smoking Status: Never smoker service: No Current occupational status: disabled Course Course Course Narrative: 1630-This serves as a rapid medical exam. 84 yo male here with generalized weakness, high blood sugars from home with past medical history of dementia, CAD, DM, PE on eliquis. Will check labs, UA, EKG, CXR. With in waiting room. Deferred HPI, PE, ROS and further evaluation by primary provider. Discharge Plan Discharge Prescriptions: No Action quetiapine 200 mg tablet 200 mg PO BEDTIME 30 Days Qty: 30 RF: 0 sulfamethoxazole-trimethoprim [Bactrim DS] 800-160 mg tablet 1 tab PO BID 14 Days Qty: 28 RF: 0 amoxicillin-pot clavulanate [Augmentin] 500-125 mg tablet 1 tab PO Q8H 7 Days Qty: 21 RF: 0 insulin aspart U-100 [Novolog Flexpen U-100 Insulin] 100 unit/mL (3 mL) insulin pen See Protocol unit subcut DIRECTED RF: 0 doxycycline hyclate 100 mg Tablet 100 mg PO BID Qty: 36 RF: 0 doxycycline hyclate 100 mg capsule 100 mg PO BID Qty: 20 RF: 0 cefixime 400 mg capsule 400 mg PO DAILY 10 Days Qty: 10 RF: 0 clotrimazole [Lotrimin AF (clotrimazole)] 1 % cream 1 appl topical TID Qty: 28.4 RF: 0 (DME) blood sugar diagnostic Strip See Rx Instructions strip .ROUTE .MEDSUPPLY Qty: 10 RF: 0 metformin 850 mg tablet 850 mg PO BIDWM RF: 0 apixaban 5 mg tablet 5 mg PO BID RF: 0 paroxetine HCl 20 mg tablet 20 mg PO QAM RF: 0 (DME) lancets Misc See Rx Instructions ea .ROUTE .MEDSUPPLY Qty: 100 RF: 0 carvedilol 6.25 mg tablet 6.25 mg PO BID RF: 0 memantine 5 mg tablet 5 mg PO BID RF: 0 (DME) blood-glucose meter Misc See Rx Instructions ea .ROUTE BID Qty: 1 RF: 0 insulin glargine 100 unit/mL (3 mL) insulin pen 15 unit subcut BEDTIME RF: 0
[2020-02-12 16:32] VITALS: BP 121/74; PULSE 94; RESP 16; TEMP 36.6; O2SAT 97; BMI 25.1
== END 2020-02-12 21:58 | disposition left against medical advice (07) ==
PROVIDERS: Emergency Provider Emergency Medicine
DX: R53.1 Weakness (principal); E11.65 Type 2 diabetes mellitus with hyperglycemia; Z85.51 Personal history of malignant neoplasm of bladder; Z86.711 Personal history of pulmonary embolism; F03.90 Unspecified dementia, unspecified severity, without behavioral disturbance, psychotic disturbance, mood disturbance, and anxiety; Z79.01 Long term (current) use of anticoagulants; Z79.4 Long term (current) use of insulin
CPT/HCPCS: 71046; 99282; 99283